=== PATIENT | male | born 1980 ===

== ENCOUNTER 2024-05-26 08:37 | Emergency (ER) | payer MEDICAID, SELFPAY ==
--- NOTE | ~2024-05-26 | XR_ITS ---
EXAMINATION: XR CHEST CLINICAL INFORMATION: Chest pain. Shortness of breath. COMPARISON: None available. TECHNIQUE: Frontal view of the chest was obtained. FINDINGS: Hypoinflation of the lungs. No focal airspace consolidation. No pleural effusion or pneumothorax. Unremarkable cardiomediastinal silhouette. XR/XR chest 1V IMPRESSION: No acute cardiopulmonary findings. Electronically signed by: Edmar Moreno MD 05/26/2024 11:32 AM [facility]
--- NOTE | 2024-05-26 08:41 | ECG_ITS ---
Test Reason : CHEST PAIN Blood Pressure : / mmHG Vent. Rate : 089 BPM Atrial Rate : 089 BPM P-R Int : 144 ms QRS Dur : 072 ms QT Int : 374 ms P-R-T Axes : 047 -24 037 degrees QTc Int : 455 ms Normal sinus rhythm Minimal voltage criteria for LVH, may be normal variant ( R in aVL ) Nonspecific T wave abnormality Abnormal ECG No previous ECGs available Referred By: Generic ED Physician Electronically Signed By:Marcel Muhammad
[2024-05-26 08:50] VITALS: BP 140/90; PULSE 88; RESP 16; TEMP 36.6; O2SAT 97; BMI 35.9
[2024-05-26 09:21] LABS: MANUAL DIFF FLAG NO
[2024-05-26 09:24] LABS: Basophils Percent Auto 0.4 % (0-2); Eosinophils Absolute Auto 0.1 X10*3/uL (0.0-0.4); Eosinophils Percent Auto 2.4 % (0-4); Hematocrit 48.1 % (42.0-52.0); Imm Gran Abs Auto 0.03 X10*3/uL (0.00-0.03); Imm Gran Pct Auto 0.5 % (0.0-0.4); Lymphocytes Absolute Auto 1.7 X10*3/uL (1.2-4.9); Lymphocytes Percent Auto 30.7 % (20-40); Mean Corpuscular HGB Conc 33.3 g/dl (31.0-36.0); Mean Corpuscular Hemoglobin 27.8 pg (27.0-33.0); Mean Corpuscular Volume 83.5 fL (80.0-98.0); Mean Platelet Volume 10.4 fL (9.4-12.4); Monocytes Absolute Auto 0.6 X10*3/uL (0.1-1.2); Neutrophils Absolute Auto 3.1 x10*3/uL (2.0-8.3); Platelet Count 217 X10*3/uL (160-400); Red Blood Count 5.76 X10*6/uL (4.60-5.80); Red Cell Distribution Width 13.2 % (11.0-16.0); White Blood Count 5.5 X10*3/uL (4.8-10.8)
--- NOTE | 2024-05-26 09:38 | PC.NURSE ---
jaylen a&ox3, registered nurse cardiac telemetry applied- nsr on monitor, vss, ekg performed/labs obtained in triage, nasal swab obtained, pt states I have a stabbing feeling in my chest when I breathe lungs are clear throughout, rr equal non labored, pt states he has 7/10 pain, awaiting provider, will continue plan of care
[2024-05-26 09:47] LABS: Alanine Aminotransferase 86 U/L (0-40); Albumin Level 4.1 g/dL (3.5-5.0); Alkaline Phosphatase 94 U/L (39-117); Anion Gap 9 (12-20); Aspartate Amino Transferase 32 U/L (5-37); Bilirubin Total 0.4 mg/dL (0.0-1.0); Blood Urea Nitrogen 13 mg/dL (9-16); Calcium 8.6 mg/dL (8.4-10.2); Carbon Dioxide 26 mmol/L (22-29); Chloride 106 mmol/L (96-108); Creatinine Clr Calc Pharmacy 101.3; Estimated Glomerular Filt Rate > 60; Glucose Random 107 mg/dL (60-115); Magnesium 2.1 mg/dL (1.6-2.6); Potassium 3.9 mmol/L (3.3-5.1); Sodium 137 mmol/L (135-145); Total Protein 7.3 g/dL (6.5-8.0)
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
[2024-05-26 10:16] LABS: INTERNATIONAL NORM RATIO 1.1 (0.9-1.1); Prothrombin Time 12.6 SEC (10.9-12.4)
[2024-05-26 10:18] LABS: D Dimer High Sensitivity < 150 NG/ML
[2024-05-26 10:25] LABS: Influenza A PCR NEGATIVE (Negative); Influenza B PCR NEGATIVE (Negative); Resp Syncy Virus RNA Qual PCR NEGATIVE (Negative); SARS COV2 PCR INHOUSE NEGATIVE (Negative)
[2024-05-26] MEDS: LORazepam 1 MG TABLET PO (10:29)
--- NOTE | 2024-05-26 10:34 | PC.NURSE ---
pt medicated per order
[2024-05-26 11:40] LABS: Troponin-I High Sensitivity 3.1 ng/L (<3.5-35.0)
[2024-05-26 13:40] VITALS: BP 116/84; PULSE 77; RESP 16; TEMP 36.7; O2SAT 94
== END 2024-05-26 13:41 | disposition home or self-care (01) ==
PROVIDERS: Physician Assistant; Emergency Provider Student in an Organized Health Care Education/Training Program
DX: R07.9 Chest pain, unspecified (principal); F41.9 Anxiety disorder, unspecified; R06.02 Shortness of breath; R11.0 Nausea; Z03.818 Encounter for observation for suspected exposure to other biological agents ruled out
CPT/HCPCS: 0241U; 36415; 71045; 80053; 83735; 84484; 85025; 85379; 85610; 93005; 99283; 99284

== ENCOUNTER → 2024-05-26 08:41 | Outpatient (BNV) | payer MEDICAID, SELFPAY | PROVIDERS: Emergency Provider Student in an Organized Health Care Education/Training Program; Visit Provider Internal Medicine Cardiovascular Disease | DX: R07.9 Chest pain, unspecified (principal); R94.31 Abnormal electrocardiogram [ECG] [EKG] | CPT/HCPCS: 93010 ==

== ENCOUNTER → 2024-05-29 14:26 | Outpatient (BNVA) | payer OTHER, SELFPAY | PROVIDERS: Visit Provider Surgery ==

== ENCOUNTER 2024-06-05 08:02 | Outpatient (AMB) | payer MEDICAID, SELFPAY ==
--- NOTE | 2024-06-05 11:39 | MHC.OFFVISWM ---
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*: Details: Start time: 11.30am, End time: 12.15pm ?I spent 40 minutes speaking with the patient on the phone plus an additional 5 minutes reviewing and updating records for a total of 45 minutes HPI Comments Details: Previous weight loss efforts: OTC pills, diet and exercise Wakes up: 9am, sleeps: 10pm Breakfast: skips Lunch: 12pm (rice, bread) Dinner: 3-4pm (rice, bread, chicken, pork) Snacks: several snacks (sweets, sandwich, cakes) Exercise: none Fluids: Coffee: no, tea: rarely, soda: occasionally, juice: ([place] juice or lemonade), ETOH: none PFSH Medical History (Updated 06/05/24 @ 11:54 by Viral Stahl MD) Sleep apnea treated with continuous positive airway pressure (CPAP) Hypertension History of noncompliance with medical treatment Surgical History (Updated 05/29/24 @ 14:50 by Binta Rogers CMA) No history of previous surgery Family History (Updated 05/29/24 @ 14:52 by Binta Rogers CMA) Mother Diabetes Father No problems noted. Daughter No problems noted. Son Autism Social History (Updated 05/29/24 @ 14:50 by Binta Rogers CMA) Alcohol intake: current Alcohol intake frequency: holidays/special occasions only Patient Tobacco Use Status: Current everyday Tobacco user Cigarettes Per Day: 6 Telehealth Telehealth Telehealth Platform: Telephone Location of provider rendering services: practice address Location of patient: address on file Patient Identification confirmed using: Name, : Yes Telehealth method: voice only Patient verbally consented to treatment: Yes Patient verbally consented to billing insurance company: Yes Patient informed of any privacy concerns related to visit: Yes Minutes spent on Phone/Video with Pt.: 45 Assessment & Plan Assessment & Plan (1) Obesity: Code(s): E66.9 - Obesity, unspecified Category: Medical Qualifiers: Body mass index: BMI 35.0-35.9 Obesity classification: adult class 2 (BMI 35 - 39.9) Obesity type: due to excess calories Serious obesity comorbidity presence: with serious comorbidity Qualified Code(s): E66.812 - Obesity, class 2; E66.01 - Morbid (severe) obesity due to excess calories; Z68.35 - Body mass index [BMI] 35.0-35.9, adult Plan: 1.? Plan for lap sleeve gastrectomy. If diaphragmatic or ventral hernias are present at time of surgery, these will be repaired laparoscopically as well. 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 I emphasized the importance of close follow-up, adherence to instructions and good communication. 2.? Please buy the body composition scale we discussed and send me weight measurements as soon as possible and then once a week. 3. The best choice would be to purchase a stationary bike at home that can track calories. Let me know if you do so I can give you an exercise plan. 4. Goal is to lose at least 1.5-2lbs per week 5. Goal to lose 10% of your weight before surgery, which is about 23lbs. Ultimate weight goal: 204lbs before surgery 6. You have high blood pressure. I ordered a blood pressure medication which is called Amlodipine. Please take one per day. Buy a blood pressure monitor and start measuring your blood pressure daily in the morning and let me know the readings 7. I ordered a medication to help you with the weight loss which is called Zepbound. My office will try to authorize it. Please let me know when you receive it so I can give you a meal and exercise plan. 8. To be scheduled for EGD to assess the stomach's anatomy. The possibility of biopsies was discussed. Patient needs to avoid use of NSAIDs and aspirin for 1 week prior to EGD. You must be on liquids only the day before your endoscopy. Risks of perforation and bleeding was discussed with the patient. This will be an outpatient procedure with IV sedation. Orders: Orders Insulin Today E66.01 - Morbid (severe) obesity due to excess calories, E66.812 - Obesity, class 2, G47.30 - Sleep apnea, unspecified, I10 - Essential (primary) hypertension, Z68.35 - Body mass index [BMI] 35.0-35.9, adult Complete Blood Count Auto Diff Today E66.01 - Morbid (severe) obesity due to excess calories, E66.812 - Obesity, class 2, G47.30 - Sleep apnea, unspecified, I10 - Essential (primary) hypertension, Z68.35 - Body mass index [BMI] 35.0-35.9, adult IRON PROFILE Today E66.01 - Morbid (severe) obesity due to excess calories, E66.812 - Obesity, class 2, G47.30 - Sleep apnea, unspecified, I10 - Essential (primary) hypertension, Z68.35 - Body mass index [BMI] 35.0-35.9, adult Comprehensive Met. Panel Today E66.01 - Morbid (severe) obesity due to excess calories, E66.812 - Obesity, class 2, G47.30 - Sleep apnea, unspecified, I10 - Essential (primary) hypertension, Z68.35 - Body mass index [BMI] 35.0-35.9, adult Vitamin B12 and Folate Today E66.01 - Morbid (severe) obesity due to excess calories, E66.812 - Obesity, class 2, G47.30 - Sleep apnea, unspecified, I10 - Essential (primary) hypertension, Z68.35 - Body mass index [BMI] 35.0-35.9, adult Zinc Today E66.01 - Morbid (severe) obesity due to excess calories, E66.812 - Obesity, class 2, G47.30 - Sleep apnea, unspecified, I10 - Essential (primary) hypertension, Z68.35 - Body mass index [BMI] 35.0-35.9, adult C Reactive Protein Today E66.01 - Morbid (severe) obesity due to excess calories, E66.812 - Obesity, class 2, G47.30 - Sleep apnea, unspecified, I10 - Essential (primary) hypertension, Z68.35 - Body mass index [BMI] 35.0-35.9, adult Vitamin D 25-OH Total Today E66.01 - Morbid (severe) obesity due to excess calories, E66.812 - Obesity, class 2, G47.30 - Sleep apnea, unspecified, I10 - Essential (primary) hypertension, Z68.35 - Body mass index [BMI] 35.0-35.9, adult ECG 12 lead EKG Today E66.01 - Morbid (severe) obesity due to excess calories, E66.812 - Obesity, class 2, G47.30 - Sleep apnea, unspecified, I10 - Essential (primary) hypertension, Z68.35 - Body mass index [BMI] 35.0-35.9, adult Hemoglobin A1c Today E66.01 - Morbid (severe) obesity due to excess calories, E66.812 - Obesity, class 2, G47.30 - Sleep apnea, unspecified, I10 - Essential (primary) hypertension, Z68.35 - Body mass index [BMI] 35.0-35.9, adult H Pylori Breath Test Today E66.01 - Morbid (severe) obesity due to excess calories, E66.812 - Obesity, class 2, G47.30 - Sleep apnea, unspecified, I10 - Essential (primary) hypertension, Z68.35 - Body mass index [BMI] 35.0-35.9, adult Lipid Panel Today E66.01 - Morbid (severe) obesity due to excess calories, E66.812 - Obesity, class 2, G47.30 - Sleep apnea, unspecified, I10 - Essential (primary) hypertension, Z68.35 - Body mass index [BMI] 35.0-35.9, adult Vitamin B1 Today E66.01 - Morbid (severe) obesity due to excess calories, E66.812 - Obesity, class 2, G47.30 - Sleep apnea, unspecified, I10 - Essential (primary) hypertension, Z68.35 - Body mass index [BMI] 35.0-35.9, adult Vitamin A Today E66.01 - Morbid (severe) obesity due to excess calories, E66.812 - Obesity, class 2, G47.30 - Sleep apnea, unspecified, I10 - Essential (primary) hypertension, Z68.35 - Body mass index [BMI] 35.0-35.9, adult TSH reflex Free T4 Today E66.01 - Morbid (severe) obesity due to excess calories, E66.812 - Obesity, class 2, G47.30 - Sleep apnea, unspecified, I10 - Essential (primary) hypertension, Z68.35 - Body mass index [BMI] 35.0-35.9, adult Ferritin Today E66.01 - Morbid (severe) obesity due to excess calories, E66.812 - Obesity, class 2, G47.30 - Sleep apnea, unspecified, I10 - Essential (primary) hypertension, Z68.35 - Body mass index [BMI] 35.0-35.9, adult US abdomen comp w elastography Today E66.01 - Morbid (severe) obesity due to excess calories, E66.812 - Obesity, class 2, G47.30 - Sleep apnea, unspecified, I10 - Essential (primary) hypertension, Z68.35 - Body mass index [BMI] 35.0-35.9, adult XR chest 2V Today E66.01 - Morbid (severe) obesity due to excess calories, E66.812 - Obesity, class 2, G47.30 - Sleep apnea, unspecified, I10 - Essential (primary) hypertension, Z68.35 - Body mass index [BMI] 35.0-35.9, adult FL upper GI w air Today E66.01 - Morbid (severe) obesity due to excess calories, E66.812 - Obesity, class 2, G47.30 - Sleep apnea, unspecified, I10 - Essential (primary) hypertension, Z68.35 - Body mass index [BMI] 35.0-35.9, adult Referrals Nutrition/Dietitian Referral E66.01 - Morbid (severe) obesity due to excess calories, E66.812 - Obesity, class 2, G47.30 - Sleep apnea, unspecified, I10 - Essential (primary) hypertension, Z68.35 - Body mass index [BMI] 35.0-35.9, adult Behavioral Health Referral E66.01 - Morbid (severe) obesity due to excess calories, E66.812 - Obesity, class 2, G47.30 - Sleep apnea, unspecified, I10 - Essential (primary) hypertension, Z68.35 - Body mass index [BMI] 35.0-35.9, adult Medications: New amlodipine 2.5 mg PO DAILY 90 tabs 0RF I10 - Essential (primary) hypertension tirzepatide (weight loss) (Zepbound) for 4 weeks 2.5 mg (0.5 mL) subcut QWEEK 2 mL 0RF E66.01 - Morbid (severe) obesity due to excess calories, E66.812 - Obesity, class 2, I10 - Essential (primary) hypertension, Z68.35 - Body mass index [BMI] 35.0-35.9, adult
== END 2024-06-05 14:01 | disposition home or self-care (01) ==
LOC: HO.HBS 08:03
PROVIDERS: Visit Provider Surgery
DX: E66.01 Morbid (severe) obesity due to excess calories (principal); E66.812 Obesity, class 2; Z68.35 Body mass index [BMI] 35.0-35.9, adult
CPT/HCPCS: 99204

== ENCOUNTER 2024-06-13 10:57 | Outpatient (REF) | payer MEDICAID, SELFPAY ==
--- NOTE | 2024-06-13 11:05 | ECG_ITS ---
Test Reason : e66.01 Blood Pressure : / mmHG Vent. Rate : 062 BPM Atrial Rate : 062 BPM P-R Int : 158 ms QRS Dur : 078 ms QT Int : 428 ms P-R-T Axes : 044 -23 001 degrees QTc Int : 434 ms Normal sinus rhythm Nonspecific T wave abnormality Abnormal ECG When compared with ECG of 26-MAY-2024 08:36, Nonspecific T wave abnormality now evident in Inferior leads Referred By: Viral Stahl Electronically Signed By:Marcel Muhammad
[2024-06-13 11:19] LABS: MANUAL DIFF FLAG NO
[2024-06-13 11:49] LABS: Basophils Percent Auto 0.7 % (0-2); Eosinophils Absolute Auto 0.1 X10*3/uL (0.0-0.4); Eosinophils Percent Auto 1.7 % (0-4); Hematocrit 46.5 % (42.0-52.0); Hemoglobin 15.4 g/dl (14.0-18.0); Imm Gran Abs Auto 0.02 X10*3/uL (0.00-0.03); Imm Gran Pct Auto 0.4 % (0.0-0.4); Lymphocytes Absolute Auto 1.4 X10*3/uL (1.2-4.9); Lymphocytes Percent Auto 26.6 % (20-40); Mean Corpuscular HGB Conc 33.1 g/dl (31.0-36.0); Mean Corpuscular Hemoglobin 27.7 pg (27.0-33.0); Mean Corpuscular Volume 83.8 fL (80.0-98.0); Mean Platelet Volume 10.4 fL (9.4-12.4); Monocytes Absolute Auto 0.5 X10*3/uL (0.1-1.2); Monocytes Percent Auto 9.2 % (2-11); Neutrophils Absolute Auto 3.3 x10*3/uL (2.0-8.3); Neutrophils Percent Auto 61.4 % (45-73); Platelet Count 204 X10*3/uL (160-400); Red Blood Count 5.55 X10*6/uL (4.60-5.80); Red Cell Distribution Width 13.5 % (11.0-16.0); White Blood Count 5.3 X10*3/uL (4.8-10.8)
[2024-06-13 13:24] LABS: Alanine Aminotransferase 80 U/L (0-40); Albumin Level 4.1 g/dL (3.5-5.0); Alkaline Phosphatase 77 U/L (39-117); Anion Gap 9 (12-20); Aspartate Amino Transferase 44 U/L (5-37); Bilirubin Total 0.7 mg/dL (0.0-1.0); Blood Urea Nitrogen 14 mg/dL (9-16); C Reactive Protein 0.25 mg/dL (< or = 0.50); Calcium 8.3 mg/dL (8.4-10.2); Carbon Dioxide 26 mmol/L (22-29); Chloride 108 mmol/L (96-108); Cholesterol 192 mg/dL (<200); Estimated Glomerular Filt Rate > 60; Glucose Random 90 mg/dL (60-115); HDL Cholesterol 33 mg/dL (>40); Iron 161 mcg/dL (45-160); LDL Cholesterol Calculated 137 mg/dL (<100); Percent Iron Saturation 55 % (15-50); Potassium 3.6 mmol/L (3.3-5.1); Sodium 139 mmol/L (135-145); Total Iron Binding Capacity 291 mcg/dL (228-428); Total Protein 7.1 g/dL (6.5-8.0); Triglycerides 110 mg/dL (<150); Unsaturated Iron Binding 130 ug/dL
[2024-06-13 13:37] LABS: Ferritin 202 ng/mL (20-250); TSH reflex Free T4 1.37 uIU/mL (0.32-4.0)
[2024-06-13 14:24] LABS: Folate 12.5 ng/mL (> or = 4.0); Insulin 28 uU/mL (2-29); Vitamin B12 338 pg/mL (200-900)
[2024-06-13 14:46] LABS: Estimated Average Glucose 114 mg/dL; Hemoglobin A1C 130.9049 umol/L; Hemoglobin A1c % 5.6 % (<6.0)
[2024-06-16 18:23] LABS: Vitamin A 44 mcg/dL (38-98)
[2024-06-16 23:19] LABS: Zinc 91 mcg/dL (60-130)
[2024-06-17 08:22] LABS: Vitamin B1 12 nmol/L (8-30)
== END 2024-06-13 10:58 | disposition home or self-care (01) ==
LOC: HO.XRAY 10:57
PROVIDERS: Visit Provider Surgery
DX: E66.812 Obesity, class 2 (principal); E66.01 Morbid (severe) obesity due to excess calories; Z68.35 Body mass index [BMI] 35.0-35.9, adult; I10 Essential (primary) hypertension; G47.30 Sleep apnea, unspecified
CPT/HCPCS: 36415; 71046; 80053; 80061; 82306; 82607; 82728; 82746; 83036; 83525; 83540; 84425; 84443; 84590; 84630; 85025; 86140; 93005

== ENCOUNTER → 2024-06-13 11:05 | Outpatient (BNV) | payer MEDICAID, SELFPAY | PROVIDERS: Visit Provider Internal Medicine Cardiovascular Disease | DX: R94.31 Abnormal electrocardiogram [ECG] [EKG] (principal) | CPT/HCPCS: 93010 ==

== ENCOUNTER 2024-06-22 11:15 | Outpatient (REF) | payer MEDICAID, SELFPAY | END 2024-06-22 11:16 | disposition home or self-care (01) | LOC: HO.US 11:15 | PROVIDERS: Visit Provider Surgery | DX: E66.812 Obesity, class 2 (principal); E66.01 Morbid (severe) obesity due to excess calories; Z68.35 Body mass index [BMI] 35.0-35.9, adult; I10 Essential (primary) hypertension; G47.30 Sleep apnea, unspecified | CPT/HCPCS: 76700; 76981 ==

== ENCOUNTER → 2024-06-22 11:17 | Outpatient (BNV) | payer MEDICAID, SELFPAY | PROVIDERS: Visit Provider Radiology Diagnostic Radiology | DX: K76.0 Fatty (change of) liver, not elsewhere classified (principal) | CPT/HCPCS: 76700 ==

== ENCOUNTER → 2024-06-28 09:22 | Outpatient (BNVA) | payer OTHER, MEDICAID, SELFPAY | PROVIDERS: Visit Provider Counselor Mental Health ==

== ENCOUNTER → 2024-06-28 09:22 | Outpatient (AMB) | payer OTHER, SELFPAY ==
--- NOTE | 2024-06-28 09:05 | MHC.WMTHER ---
Intake Intake Visit Reasons: VIDEO BH Intake Allergies No Known Allergies Allergy (Verified 06/05/24 11:39) [facility] Medical History (Updated 06/13/24 @ 16:18 by Viral Stahl MD) Sleep apnea treated with continuous positive airway pressure (CPAP) Hypertension History of noncompliance with medical treatment Surgical History (Updated 05/29/24 @ 14:50 by Binta Rogers CMA) No history of previous surgery Family History (Updated 05/29/24 @ 14:52 by Binta Rogers CMA) Mother Diabetes Father No problems noted. Daughter No problems noted. Son Autism Social History (Updated 05/29/24 @ 14:50 by Binta Rogers CMA) Alcohol intake: current Alcohol intake frequency: holidays/special occasions only Patient Tobacco Use Status: Current everyday Tobacco user Cigarettes Per Day: 6 Behavioral Health Assessment Weight Management Therapy Therapy Notes Details PT is a 44 years old male, who presents for intial visit to complete BH assessment as part of surgical weight loss program. Presenting Concerns Referral Source WMP-Provider. Reason for referral Completion of behavioral health assessment as part of process for weight-loss surgery. Precipitating Event Obesity. Living Situation Current Living Situation Own At risk of losing current housing? Yes (PT lost his job 2 months ago. ) Satisfied with current living situation? Yes Comments PT lives alone. Food/Weight/Diet Expectations of change Initial Goal to lose 10% of your weight before surgery, which is about 23 lbs. Ultimate weight goal: 204lbs before surgery Most recent weight: 221 Lbs. PT is implementing the following: Current meal plan: Exercise plan: stationary bike. daily. History/Relationship with food Example of meals before starting the program: Breakfast: Lunch: Dinner: Snacks: Drinks/Liquids: History/Relationship with weight In the last 10 years, the patient's Lowest weight was and highest Social History Family history and relationship PT is . PT has 2 young children. Parental/Familial de icer finisher obligations 6 year old daughter, and 4 year old son. Cultural/Ethnic information . PT was born and raised in [place] in [place] 2021. 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 ) Mental Health and Addiction Treatment Current/Past substance abuse? No Comments Alcohol: Socially. 2-3 beers 1-3 times at month. At times can be months in between. Cigarettes/Tobacco: Yes. Smokes cigarettes daily. Smokes 6-8 at day. Cannabis/Edibles: None. Current/Past addictive behavior concerns? No Psychiatric history PT reports in the last 2 years he has been struggling with high stress due to major housing issues. He gets prescribed with: - Clonazepam 0.5mg, Started on May after an ER visit due to chest pain after an argument with ex-. - Hydroxyzine 10mg, [facility] prescriber. not using as he's afraid of side effects he read, such as SI Currently attends counseling every 2-4 weeks and sees a prescriber at [facility]. However, he hasn't seen a therapist 2 months ago due to insurance coverage issues. PT denies ever being in crisis or inpatient for mental health. There is no history and/or current concern about SI/Sa and self-harm or other harm. Questionnaires PHQ-9 Over the last 2 weeks, how often have you been bothered by any of the following problems? 1. Little interest or pleasure in doing things: nearly every day 2. Feeling down, depressed, or hopeless: more than half the days 3. Trouble falling or staying asleep, or sleeping too much: more than half the days 4. Feeling tired or having little energy: more than half the days 5. Poor appetite or overeating: nearly every day 6. Feeling bad about yourself - or that you are a failure or have let yourself or your family down: more than half the days 7. Trouble concentrating on things, such as reading the newspaper or watching television: several days 8. Moving or speaking so slowly that other people could have noticed. Or the opposite - being so fidgety or restless that you have been moving around a lot more than usual: several days 9. Thoughts that you would be better off or of hurting yourself in some way: not at all Total score: 16 Depression Screening Interpretation: Positive Depression Screening Done: Yes Source: Developed by Drs. Clovis Malagon, Anita Luis, Jose Good and colleagues, with an educational svetlana from [employer]. Binge Eating Scale Group 1 A. I don't feel self-conscious about my wt. or body size when I'm with others. B. I feel concerned about how I look to others, but it normally does not make me fell disappointed with myself C. I do get self-conscious about my appearance and wt. which makes me feel disappointed in myself. D. I feel very self-conscious about my wt. and frequently I feel intense shame and disgust for myself. I try to avoid social contacts because of my self-consciousness. Response Group 1: C Group 2 A. I don't have any difficulty eating slowly in the proper manner. B. Although I seem to gobble down foods, I don't end up feeling stuffed because of eating to much. C. At times, I tend to eat quickly and then, I feel uncomfortably full afterwards. D. I have the habit of bolting down my food, without really chewing it. When this happens I usually feel uncomfortably stuffed because I've eaten to much. Response Group 2: D Group 3 A. I feel capable to control my eating urges when I want to. B. I feel like I have failed to control my eating more than the average person. C. I feel utterly helpless when it comes to feeling in control of my eating urges. D. Because I feel so helpless about controlling my eating I have become very desperate about trying to get control. Response Group 3: A Group 4 A. I don't have the habit of eating when I'm bored. B. I sometimes eat when I'm bored, but often I'm able to get busy and get my mind off food. C. I have a regular habit of eating when I'm bored, but occasionally, I can use some other activity to get my mind off eating. D. I have a strong habit of eating when I'm bored. Nothing seems to help me breath the habit. Response Group 4: C Group 5 A. I'm usually physically hungry when I eat something. B. Occasionally, I eat something on impulse even though I really am not hungry. C. I have the regular habit of eating foods, that I might not really enjoy, to satisfy a hungry feeling even though physically, I don't need the food. D. Although I'm not physically hungry, I get a hungry feeling in my mouth that only seems to be satisfied when I eat a food, like sandwich, that fills my mouth. Sometimes, when I eat the food to satisfy my mouth hunger, I then spit the food out so I won't gain weight. Response Group 5: B Group 6 A. I don't feel any guilt or self-hate after I overeat. B. After I overeat, occasionally I feel guilt or self-hate. C. Almost all the time I experience strong guilt or self-hate after I overeat. Response Group 6: A Group 7 A. I don't lose total control of my eating when dieting even after periods when I overeat. B. Sometimes when I eat a forbidden food on a diet, I feel like I blew it and eat even more. C. Frequently, I have the habit of saying to myself, I've blown it now, why not go all the way, when I overeat on a diet. When that happens I eat more. D. I have a regular habit of starting a strict diets for myself but I break the diets by going on an eating binge. My life seems to be either a feast or famine. Response Group 7: A Group 8 A. I rarely eat so much food that I feel uncomfortably stuffed afterwards. B. Usually about once a month, I each such a quantity of food, I end up feeling very stuffed. C. I have regular periods during the month when I eat large amounts of food, either at mealtime or at snacks. D. I eat so much food that I regularly feel quite uncomfortable after eating and sometimes a bit nauseous. Response Group 8: A Group 9 A. My level of calorie intake does not go up very high or go down very low on a regular basis. B. Sometimes after I overeat, I will try to reduce my caloric intake to almost nothing to compensate for the excess calories I've eaten. C. I have a regular habit of overeating during the night. It seems that my routine is not to be hungry in the morning but overeat in the evening. D. In my adult years, I have had week-long periods where I practically starve myself. This follows periods when I overeat. It seems I live a life of either feast or famine. Response Group 9: C Group 10 A. I usually am able to stop eating when I want to. I know when enough is enough. B. Every so often, I experience a compulsion to eat which I can't seem to control. C. Frequently, I experience strong urges to eat which I seem unable to control, but at other times I can control my eating urges. D. I feel incapable of controlling urges to eat. I have a fear of not being able to stop eating voluntarily. Response Group 10: A Group 11 A. I don't have any problem stopping eating when I feel full. B. I usually can stop eating when I feel full but occasionally overeat leaving me feeling uncomfortably stuffed. C. I have a problem stopping eating once I start and usually I feel uncomfortably stuffed after I eat a meal. D. Because I have a problem not being able to stop eating when I want, I sometimes have to induce vomiting to relieve my stuffed feeling. Response Group 11: A Group 12 A. I seem to eat just as much when I'm with others, Family social gatherings as when I'm by myself. B. Sometimes, when I'm with other persons, I don't eat as much as I want to eat because I'm self-conscious about my eating. C. Frequently, I eat only a small amount of food when others are present, because I'm very embarrassed about my eating. D. I feel so ashamed about overeating that I pick times to overeat when I know no one will see me. I feel like a closet eater. Response Group 12: A Group 13 A. I eat three meals a day with only an occasional between meal snack. B. I eat 3 meals a day, but I also normally snack between meals. C. When I am snacking heavily, I get in the habit of skipping regular meals. D. There are regular periods when I seem to be continually eating, with no planned meals. Response Group 13: C Group 14 A. I don't think much about trying to control unwanted eating urges. B. At least some of the time, I feel my thoughts are pre-occupied with trying to control my eating urges. C. I feel that frequently I spend much time thinking about how much I ate or about trying not to eat anymore. D. It seems to me that most of my waking hours are pre-occupied by thoughts about eating or not eating. I feel like I'm constantly struggling not to eat. Response Group 14: C Group 15 A. I don't think about food a great deal. B. I have strong craving for food but they last only for brief periods of time. C. I have days when I can't seem to think about anything else but food. D. Most of my days seem to be pre-occupied with thoughts about food. I feel like I live to eat. Response Group 15: A Group 16 A. I usually know whether or not I'm physically hungry. I take the right portion of food to satisfy me. B. Occasionally, I feel uncertain about knowing whether or not I'm physically hungry. A these times it's hard to know how much food I should take to satisfy me. C. Even though I might know how many calories I should eat, I don't have any idea what is a normal amount of food for me. Response Group 16: A Binge Eating Score: 14 Score less than 17 Minimal Risk Score between 18-26 Moderate Risk Score between 27-46 High Risk Assessment & Plan Assessment & Plan (1) Adjustment disorder with anxiety: Code(s): F43.22 - Adjustment disorder with anxiety Plan PT will return in 2-4 weeks to continue assessment. He's not yet cleared. Next john: 07/10/2024 at 9am, Telehealth. Telehealth Telehealth Telehealth Platform: [facility] Location of provider rendering services: other Location of patient: address on file Patient Identification confirmed using: Name, : Yes Telehealth method: voice only Patient verbally consented to treatment: Yes Patient verbally consented to billing insurance company: Yes Patient informed of any privacy concerns related to visit: Yes Minutes spent on Phone/Video with Pt.: 55 Coding Level of Care Code New Pt Tele Psy Diag Eval (32000) Patient Type New Diagnoses Adjustment disorder with anxiety F43.22 Time Spent (min) 55
== END ==
PROVIDERS: Visit Provider Counselor Mental Health
DX: F43.22 Adjustment disorder with anxiety (principal)
CPT/HCPCS: 90834

== ENCOUNTER → 2024-07-03 08:00 | Outpatient (REF) | payer MEDICAID, SELFPAY ==
--- NOTE | 2024-07-03 08:03 | CA_ITS ---
Transthoracic Echocardiogram Patient (Last, First, Middle): Dallin Scott, Gender: Male Date of : 1980 Age: 44 Procedure Date: 07/03/2024 Procedure Type: Transthoracic Echocardiogram Location: OP Height: 170. cm Weight: 101.15 kg BSA: 2.12 m2 Heart Rate: 62 bpm BP: 128 / 80 mmHg Transition Manager: LEONIDAS Referring MD: Viral Stahl MD Symptoms: R94.31 - Abnormal electrocardiogram [ECG] [EKG] Study Quality: Adequate ECG Rhythm: Sinus Conclusions: - The left ventricular systolic function is normal. The calculated ejection fraction is 67% by biplane method. - No obvious valvular pathology seen on this study. Findings Left Ventricle Normal left ventricular cavity size. There is mildly increased left ventricular wall thickness. The left ventricular systolic function is normal. The calculated ejection fraction is 67% by biplane method. There is no evidence of regional wall motion abnormalities. Diastolic function is normal for age. Right Ventricle Mildly increased right ventricular cavity size. There is normal right ventricular systolic function. Atria Both atria are normal in size. Aortic Valve There is a normal trileaflet aortic valve. There is no aortic valve stenosis. There is trace (trivial) aortic valve regurgitation. Mitral Valve The mitral valve appears normal. There is no mitral valve regurgitation. There is no mitral valve stenosis. Pulmonic Valve The pulmonic valve is likely normal. Tricuspid Valve There is trace tricuspid valve regurgitation. There is no evidence of pulmonary hypertension. Great Vessels The asc aorta and aortic arch are normal in size. Venous The inferior vena cava is normal in size and collapses greater than 50% with inspiration. Pericardium/Pleural There is no evidence of pericardial effusion. Prior Study Comparison No prior study available for comparison. Recommendations, Care & Conclusions No obvious valvular pathology seen on this study. Measurements 2D Linear Measurements IVSd: 1.07 0.6-0.9/0.6-1.0 cm LVIDd: 4.60 3.9-5.3/4.2-5.9 cm LVIDd Index: 2.17 2.4-3.2/2.2-3.1 cm/m2 LVIDs: 2.36 2.0-3.6 cm LVPWd: 1.05 0.7-1.1 cm LA Diam: 3.60 2.7-3.8/3.0-4.0 cm LAIDs Index: 1.70 1.5-2.3 cm/m2 LV Mass: 214.37 67-162/88-224 g LV Mass Index: 101.12 43-95/49-115 g/m2 LVOT Diam: 2.10 3.0+(-)1.3 cm 2D Systolic Function EF 4C: 67.50 >55% EF 2C: 69.20 >55% EF BiP: 67.20 >55% Mitral Valve MV Pk E: 0.62 MV PK A: 0.50 MV Decel Time: 355.00 E/A: 1.20 E'Lateral: 9.03 E'Medial: 8.38 E/E' Med: 7.40 E/E' Lat: 6.90 PHT: 104.00 MVA PHT: 2.12 Decel Gladwin: 1.75 Aortic Valve AoV Pk Jose: 1.61 AoV Mn Jose: 1.19 AoV VTI: 0.36 AoV Pk Grad: 10.00 Aov Mn Grad: 6.00 LAUREN Cont.VTI: 2.39 LVOT LVOT Pk Jose: 1.32 LVOT Mn Jose: 0.82 LVOT VTI: 0.25 LVOT Pk Grad: 7.00 LVOT Mn Grad: 3.00 LVOT Diam: 2.10 LVOT Area: 3.46 Diastolic Function MV Pk E: 0.62 MV Pk A: 0.50 E/A: 1.20 E'Medial: 8.38 E/E' Med: 7.40 E' Laterial: 9.03 E/E' Lat: 6.90 Right Ventricle TAPSE (mm): 18.70 TVS' Jose: 14.40 Tricuspid Valve TR Pk Jose: 1.85 TR Pk Grad: 14.00 Great Vessels Aorta Sinus of Valsalva: 4.00 2.0-3.5 cm Ao Asc: 3.70 2.1-3.4 cm Ao Arch: 3.00 Pulmonary Valve PV Pk Jose: 1.00 Peak PV Grad: 4.00 Updated in Other Vendor System with Status of Final Kendall Nagel MD electronically signed on 07/03/2024 10:39:05 AM with status of Final
--- NOTE | 2024-07-03 08:03 | CA_ITS ---
Acquisition Time: 2024-07-03 08:44:17 Total Exercise Time: 00:08:16 Test Indications: PREOP Medications: SEE H Protocol: JUVE Max HR: 151 BPM 86% of Pred: 175 BPM Max BP: 148/068 mmHG Max Work Load: 10.1 METS Exercise Stress Test with exercise 8 min 16 secs of Juve Protocol, achieving 85% MPHR, with mild SOB, no chest discomfort, without any arrythmias, with normotensive response to exercise. Without any EKG changes meeting criteria for ischemia. In recovery, breathing quickly returned to baseline. Test reviewed with Dr. Muhammad. Test performed by Gaviota Lo NP and Luis Eduardo Kemp NP Referred By: Viral Stahl Overread By: GAVIOTA LO
== END ==
LOC: HO.CARD 08:00
PROVIDERS: PCP Internal Medicine; Visit Provider Surgery
DX: R94.31 Abnormal electrocardiogram [ECG] [EKG] (principal)
CPT/HCPCS: 93017; 93306

== ENCOUNTER → 2024-07-03 08:03 | Outpatient (BNV) | payer MEDICAID, SELFPAY | PROVIDERS: PCP Internal Medicine; Visit Provider Internal Medicine | DX: R94.31 Abnormal electrocardiogram [ECG] [EKG] (principal) | CPT/HCPCS: 93016; 93018; 93350 ==

== ENCOUNTER 2024-07-18 10:10 | Day surgery (SDC) | payer MEDICAID, SELFPAY ==
--- NOTE | 2024-07-17 09:21 | HO.ANESPROP2 ---
Documented by User: Anais Lee NP 07/17/24 09:22 HPI - Anesthesia Eval Consult details Narrative: 44yo M for Upper Endoscopy Anesthesia Pre-Procedure Meds Is the patient on any of the following meds?: GLP1/DPP4 PMFSH Active Problems Active Problems: All Active Problems Abnormal EKG (Acute) Vitamin B12 deficiency (Acute) Vitamin D deficiency (Acute) Sleep apnea treated with continuous positive airway pressure (CPAP) (Acute) Hypertension (Acute) BMI 35.0-35.9,adult (Acute) Obesity (Acute) Past Medical History Medical History Sleep apnea treated with continuous positive airway pressure (CPAP) Hypertension History of noncompliance with medical treatment Family History Family History (Reviewed 07/18/24 @ 12: by Smita Blackman MD) Mother Diabetes Father No problems noted. Daughter No problems noted. Son Autism Surgical History Surgical History No history of previous surgery Social History Social History Alcohol intake: current Alcohol intake frequency: holidays/special occasions only Patient Tobacco Use Status: Current everyday Tobacco user Tobacco use type: Cigarette Cigarettes Per Day: 8 Use of substances other than those prescribed or required for medical reasons: No Are you DNR?: No Advance Directives: No Advance Directives Information Provided: Yes Nutrition Risks: No Nutritional Risk Poor oral hygiene: No Meds Allergies Allergy/AdvReac Type Severity Reaction Status Date / Time No Known Allergies Allergy Verified 06/05/24 11:39 Home Medications ?Medication ?Instructions ?Recorded ?Confirmed ?Last Taken ?Type CPAP (CPAP Machine/Device) 05/29/24 06/05/24 Unknown History clonazepam 0.5 mg tablet 0.25 mg PO BEDTIME 06/05/24 06/05/24 Unknown History Assessment and Plan Assessment Anesthesia Assessment: Chart Reviewed Documented by User: Smita Blackman MD 07/18/24 12:27 [facility] Past Medical History Medical History Sleep apnea treated with continuous positive airway pressure (CPAP) Hypertension History of noncompliance with medical treatment Family History Family History Mother Diabetes Father No problems noted. Daughter No problems noted. Son Autism Surgical History Surgical History No history of previous surgery History of Problems with Anesthesia: No Social History Social History Alcohol intake: current Alcohol intake frequency: holidays/special occasions only Patient Tobacco Use Status: Current everyday Tobacco user Tobacco use type: Cigarette Cigarettes Per Day: 8 Use of substances other than those prescribed or required for medical reasons: No Are you DNR?: No Advance Directives: No Advance Directives Information Provided: Yes Nutrition Risks: No Nutritional Risk Poor oral hygiene: No Meds Allergies Allergy/AdvReac Type Severity Reaction Status Date / Time No Known Allergies Allergy Verified 06/05/24 11:39 Home Medications ?Medication ?Instructions ?Recorded ?Confirmed ?Last Taken ?Type CPAP (CPAP Machine/Device) 05/29/24 06/05/24 Unknown History clonazepam 0.5 mg tablet 0.25 mg PO BEDTIME 06/05/24 06/05/24 Unknown History Exam Airway Mallampati Class: III TM Dist: >3cm Neck ROM: Full Loose/Missing/Broken Teeth: Yes Heart: RRR Lungs: CTA Assessment and Plan Assessment Anesthesia Assessment: Anesthesia Plan Discussed Final Anesthetic Review History of Problems with Anesthesia: No NPO: Yes ASA Class: II Final Preanesthetic Review: Meds/Allgs Chart Reviewed, Consent Obtained/Reviewed and Anes Risks/Benef Reviewed Patient Risk: Low Procedure Risk: Intermediate Anesthetic Plan Anesthetic Plan: MAC: Disposition: Standard PACU
[2024-07-18 10:53] VITALS: BMI 33.7
[2024-07-18 10:59] VITALS: BP 131/84; PULSE 70; RESP 16; TEMP 36.4; O2SAT 97
[2024-07-18] MEDS: Lactated Ringers 1,000 ML 80 ML IVCONT (11:11)
--- NOTE | 2024-07-18 12:18 | MHC.SHP ---
Pre-Procedural Eval Section A - 24 Hr Update-Section A only Date of Service: 07/18/24 The patient is an INPATIENT: No The patient has been examined within 24 hours of the surgical procedure. The History & Physical has been completed within 30 days and I have reviewed it.: Yes Section B - Complete if H&P > 30 days Chief Complaint: Morbid (severe) obesity due to excess calories Details of Present Illness: Obesity Relevant Family History (Specify if Yes): No Relevant Social History: None Present Medications: None Medical History: No relevant PMH History of Previous Operations: No relevant previous surgery Allergies: Allergies Allergy/AdvReac Type Severity Reaction Status Date / Time No Known Allergies Allergy Verified 06/05/24 11:39 Review of Systems Sugical H&P ROS: Negative: Constitution, Cardiovascular, Respiratory, Neurological, Psychiatric, Hem-Onc, Allergic/Immunologic, Gastrointestinal, Genitourinary, Musculoskeletal, Integumentary, Endocrine and Eyes/Ears/Nose/Throat Exam Surgical H&P Exam: Normal: HEENT, Normal: Heart, Normal: Lungs, Normal: Extremities, Normal: Abdomen, Normal: Skin and Normal: Neurological Plan Diagnosis/Plan: Unchanged (EGD to assess the stomach's anatomy. Risks of bleeding and perforation were discussed with the patient and he is in agreement with the plan.) I have reviewed the history and physical and performed a pertinent physical examination on my patient. No changes have occurred unless specified. Time Spent With Patient Time: Total time managing care of this patient today ____ minutes.
--- NOTE | 2024-07-18 12:23 | PM.OP ---
Brief Operative Note Date of Service: 07/18/24 Pre-op diagnosis: Obesity Post-op diagnosis: same (& small diaphragmatic hernia) Procedure: PROCEDURE DATE: 07/18/2024 PREOPERATIVE DIAGNOSIS: Obesity POSTOPERATIVE DIAGNOSIS: ?Same as above. 1) small diaphragmatic hernia PROCEDURE: Luhlluye-vedznp-iuxffjwtwzya with biopsies Surgeon: Markus Stahl M.D.. Ph.D. Home Health Scheduler: None ? Anesthesia: IV sedation Estimated blood loss: ?Minimal FINDINGS AND PROCEDURE: ? OPERATIVE INDICATIONS: ?The patient is a 44 year old male known to me who is interested in bariatric surgery. Based on this information I recommended an upper endoscopy to evaluate the stomach's anatomy. Risks and complications of the surgery were discussed with the patient in advance particularly the possibility of perforation or bleeding that may require surgical intervention. The patient understood the risks and was in agreement with the plan. ? PROCEDURE: After informed consent was obtained by the patient, the patient was ?transferred to the Operating Room and was placed in the supine position.? After successful induction of IV sedation, a mouth block was inserted and the patient was placed in the left lateral decubitus position. An upper endoscopy was performed next, the oropharynx and esophagus appeared within the normal limits. There was a small 2-3cm diaphragmatic hernia. The z-line was smooth. Two biopsies were obtained from the distal esophagus 2-3 cm proximal to the GE junction and two additional biopsies from the GE junction. The stomach was entered and it appeared to be of normal size. There was no gastritis. There was no stricture or ulcer. A biopsy was obtained from the gastric fundus and antrum. No significant bleeding was noted from any of the biopsy sites. Retroflexion of the scope confirmed the presence of a small diaphragmatic hernia. The scope was then advanced into the duodenum which appeared to be normal as well. At that point the duodenum ?and the stomach were decompressed and the scope was withdrawn from the patient's mouth. The patient extubated and was transferred in stable condition to the Recovery Room for further care. I was present and performed all steps of the procedure. There were no residents to assist with this case. Aleksandar Stahl M.D., Ph.D. Surgeon: Viral Stahl MD Anesthesia: MAC Was an Home Health Scheduler used for this Procedure?: No Estimated blood loss (mL): 0 IV fluids (mL): 400 Urine output (mL): 0 (No Seals to record output) Pathology: other (1) antrum x1, 2) fundus x1, 3) GE junction x2, 4) distal esophagus x2) Condition: stable Disposition: PACU
[2024-07-18 12:55] VITALS: BP 122/76; PULSE 93; RESP 18; TEMP 36.6; O2SAT 98
[2024-07-18 13:10] VITALS: BP 120/78; PULSE 85; RESP 16; O2SAT 98
[2024-07-18 13:25] VITALS: BP 118/84; PULSE 73; RESP 16; TEMP 36.4; O2SAT 94
== END 2024-07-18 14:13 | disposition home or self-care (01) ==
PROVIDERS: Visit Provider Surgery
PROC: 0DJ08ZZ Inspection of Upper Intestinal Tract, Via Natural or Artificial Opening Endoscopic (ICD-10-PCS; CPT 43235; principal; 2024-07-18 13:10)
DX: E66.01 Morbid (severe) obesity due to excess calories (principal); E66.812 Obesity, class 2; Z68.35 Body mass index [BMI] 35.0-35.9, adult; K44.9 Diaphragmatic hernia without obstruction or gangrene; I10 Essential (primary) hypertension; G47.30 Sleep apnea, unspecified; Z79.899 Other long term (current) drug therapy; Z99.89 Dependence on other enabling machines and devices; Z91.199 Patient's noncompliance with other medical treatment and regimen due to unspecified reason; F17.210 Nicotine dependence, cigarettes, uncomplicated
CPT/HCPCS: 43239; 88305; 88313; 88342; J2003; J2250; J2704

== ENCOUNTER → 2024-07-18 10:10 | Outpatient (BNV) | payer MEDICAID, SELFPAY | PROVIDERS: Visit Provider Surgery | DX: K44.9 Diaphragmatic hernia without obstruction or gangrene (principal) | CPT/HCPCS: 43239 ==

== ENCOUNTER → 2024-07-31 08:22 | Outpatient (BNVA) | payer OTHER, MEDICAID, SELFPAY | PROVIDERS: Visit Provider Counselor Mental Health ==

== ENCOUNTER → 2024-07-31 08:22 | Outpatient (AMB) | payer OTHER, SELFPAY ==
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
== END ==
PROVIDERS: Visit Provider Counselor Mental Health
DX: F43.22 Adjustment disorder with anxiety (principal)
CPT/HCPCS: 90837

== ENCOUNTER → 2024-08-11 09:42 | Outpatient (BNVA) | payer MEDICAID, SELFPAY | PROVIDERS: Visit Provider Physician Assistant Surgical ==

== ENCOUNTER 2024-10-08 13:07 | Emergency (ER) | payer MEDICAID, SELFPAY ==
--- NOTE | ~2024-10-08 | XR_ITS ---
CLINICAL HISTORY: pain, injury Three views of the right ankle. COMPARISON: None FINDINGS: No ankle joint effusion. Tiny calcaneal enthesophyte present. Ankle mortise appears symmetric on non-stressed views. Talar dome appears intact. Distal tibia and fibula appear intact. Visualized tarsal bones appear intact. IMPRESSION: 1. No radiographic evidence of acute injury to the right ankle. This document has been electronically signed by: Jhoan Segura MD on 10/08/2024 13:49:25
--- NOTE | ~2024-10-08 | US_ITS ---
CLINICAL HISTORY: Right posterior ankle pain, deformity, r.o ashley Ultrasound of the soft tissues of the right ankle COMPARISON: None FINDINGS: Dedicated ultrasound imaging was performed along the distal right Achilles tendon. Right Achilles tendon is enlarged and edematous when compared with the left Achilles tendon. Complex irregularity measuring approximately 1.8 x 1.1 cm present within the distal Achilles tendon with disruption of the architecture and normal Achilles tendon striations not visualized. No organizing fluid collection identified. No foreign body identified. IMPRESSION: 1. Probable distal right Achilles tendon tear/rupture. This document has been electronically signed by: Jhoan Segura MD on 10/08/2024 16:09:50
--- NOTE | ~2024-10-08 | XR_ITS ---
CLINICAL HISTORY: fall, pain Three views of the right foot. COMPARISON: None FINDINGS: No ankle joint effusion. Tiny calcaneal enthesophyte present. Normal tarsometatarsal alignment. Tarsals, metatarsals and phalanges appear intact. IMPRESSION: 1. No radiographic evidence of acute injury to the right foot. This document has been electronically signed by: Jhoan Segura MD on 10/08/2024 13:50:31
[2024-10-08 13:08] VITALS: BP 105/71; PULSE 88; RESP 24; TEMP 36.2; O2SAT 98; BMI 32.9
--- NOTE | 2024-10-08 13:08 | ED.LOWEXIN ---
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 Patient reports he was playing basketball and a friend stepped on the back of his right ankle. He immediately heard a snapping sensation and felt pain. Since then he can not ambulate on the extremity. He has no associated numbness, weakness or tingling of the extremity. Related Data Home Medications ?Medication ?Instructions ?Recorded ?Confirmed CPAP (CPAP Machine/Device) 05/29/24 06/05/24 clonazepam 0.5 mg tablet 0.25 mg PO BEDTIME 06/05/24 06/05/24 Previous Rx's ?Medication ?Instructions ?Recorded amlodipine 2.5 mg tablet 2.5 mg PO DAILY #90 tabs 06/05/24 tirzepatide (weight loss) 2.5 2.5 mg (0.5 mL) subcut QWEEK #2 mL 06/05/24 mg/0.5 mL subcutaneous pen injector (Zepbound) cholecalciferol (vitamin D3) 125 125 mcg PO DAILY #90 caps 06/13/24 mcg (5,000 unit) capsule mecobalamin (vitamin B12) 1,000 1,000 mcg sublingual DAILY #90 tabs 09/04/24 mcg disintegrating tablet,sublingual oxycodone 10 mg tablet 10 mg PO Q6H PRN pain #12 tabs 10/08/24 Allergies Allergy/AdvReac Type Severity Reaction Status Date / Time No Known Allergies Allergy Verified 10/08/24 13:12 Review of Systems Review of Systems: Yes all other systems are reviewed and are negative Constitutional: Constitutional: Reports no additional constitutional complaints, Denies body ache(s), Denies chills, Denies fever(s), Denies headache(s) and Denies weakness Eyes: Eyes: Reports no additional eye complaints and Denies change in vision ENT: Reports system reviewed and no additional complaints, except as documented, Denies dizziness, Denies headache(s), Denies nasal congestion, Denies nasal discharge and Denies neck pain Cardiovascular: Cardiovascular: Reports no additional cardiovascular complaints, Denies chest pain, Denies leg edema and Denies dyspnea Respiratory: Respiratory: Reports no additional respiratory complaints, Denies cough and Denies dyspnea Gastrointestinal: Gastrointestinal: Reports no additional gastrointestinal complaints, Denies abdominal pain, Denies diarrhea, Denies nausea and Denies vomiting Genitourinary: Genitourinary: Denies urinary incontinence Musculoskeletal: Musculoskeletal: Reports no additional musculoskeletal complaints, Denies back pain, Reports arthralgias, Denies joint swelling, Denies limited range of motion, Denies neck pain, Denies numbness and Denies tingling Integumentary/Breasts: Skin/Breast: Reports system reviewed and no additional complaints, except as docu and Denies rash Neurologic: Reports system reviewed and no additional complaints, except as documented, Denies Abnormal speech present, Denies dizziness, Denies headache(s), Denies numbness, Denies tingling and Denies weakness PMFSH Past Medical History Attestation statement: The following information was validated with the patient. Source: old records reviewed and nursing notes reviewed Medical History History of smoking Sleep apnea treated with continuous positive airway pressure (CPAP) Hypertension History of noncompliance with medical treatment Surgical History No history of previous surgery Family History Family History Mother Diabetes Father No problems noted. Daughter No problems noted. Son Autism Social History Social History Alcohol intake: current Alcohol intake frequency: holidays/special occasions only Patient Tobacco Use Status: Current everyday Tobacco user Tobacco use type: Cigarette Cigarettes Per Day: 8 Smoked in Last 30 Days: No Use of substances other than those prescribed or required for medical reasons: No Advance Directives: No Advance Directives Information Provided: Yes Do you have a plan to hurt others: No Plan Physical Exam Vital Signs: Vital Signs: Last Vital Signs Temp 97.1 F 10/08/24 13:08 Pulse 88 10/08/24 13:08 Resp 24 H 10/08/24 13:08 BP 105/71 10/08/24 13:08 Pulse Ox 98 10/08/24 13:08 O2 Del Method Room Air 10/08/24 13:08 BMI result Body Mass Index 32.9 Const: General: cooperative, healthy appearing, comfortable and no acute distress Orientation/consciousness: patient oriented x3 Limitations: no limitations HEENT: Head: Yes normal to inspection Ears: hearing grossly normal bilaterally General nose exam: Normal external nose present Face and sinus: Yes normal facial exam Mouth: Normal oral and palatal mucosa present Throat: Yes posterior oropharynx normal Eyes: General: appearance normal, both eyes and all related structures Pupils: Equal, round and reactive pupils present Neck: Neck: Yes normal visual inspection Chest: Chest palpation & inspection: normal inspection of the chest Resp: Effort & Inspection: normal respiratory effort Auscultation: clear to auscultation bilaterally Cardio: Rate: regular rate Rhythm: regular rhythm Peripheral pulses: Peripheral pulses 2+ throughout GI: Inspection: Yes normal to inspection Palpation (GI): Soft to palpation and nontender Auscultation: normal bowel sounds Back/Spine/Pelvis: Thoracic/Lumbar Spine: thoracic and lumbar spine normal to inspection Skin: General skin exam: no rashes or lesions noted Neuro: General: patient oriented x3, no focal motor deficits and normal sensation to monofilament Cranial nerves: Yes Equal, round and reactive pupils present Cognition (Neuro): normal cognition Speech: No Abnormal speech present Gait exam (Neuro): Normal gait present Motor exam (neuro): 5/5 motor strength present throughout Extrem: Other: patient has a palpable deformity to the Achilles tendon. Positive Sykes exam CMS intact distally Course Course Course Narrative: This is an RME performed by Uriel Son CNP: Additional HPI, ROS, PE not included below will be deferred to primary provider. Patient is a 44-year-old male presents emergency department for evaluation of traumatic right foot pain after someone accidentally stepping onto the ankle while playing basketball. Plan: XR Reevaluation(s) Reevaluation #1: ultrasound is concerning for Achilles tendon rupture. I discussed the case with Orthopedics. They recommended patient the patient in a posterior splint with slight dorsiflexion with strict nonweightbearing and follow up outpatient in the office. Medications Administered Discontinued Medications Generic Name Dose Route Start Last Admin Trade Name Freq PRN Reason Stop Dose Admin Oxycodone HCl 10 mg 10/08/24 14:15 10/08/24 14:22 Oxycodone Hcl Immed Release 5 Mg Tablet PO 10/08/24 14:16 10 mg ONCE ONE Administration Medical Decision Making Medical Decision Making [facility] Narrative: this is a 44-year-old male with a history of hypertension and sleep apnea who presents to the ER with complaints of right posterior ankle pain after an injury which occurred today while playing basketball. Patient reports he was playing basketball and a friend stepped on the back of his right ankle. He immediately heard a snapping sensation and felt pain. Since then he can not ambulate on the extremity. He has no associated numbness, weakness or tingling of the extremity patient has a palpable deformity to the Achilles tendon. Positive Sykes exam CMS intact distally likely Achilles tendon injury. Will obtain x-rays, US, provide analgesia Differential Diagnosis Differential Diagnoses: The differential diagnosis associated with the presentation includes Achilles tendon rupture Admission/Observation Consideration of admission/observation: Escalation of care including admission/observation considered Consult Healthcare Provider Management of the patient was discussed with: Release Manager Orthopedic (deo walton) Independent Interpretation I performed an independent interpretation of an: Plain X-Ray and Ultrasound Interpretation: I independently viewed the x-ray and the ultrasound agree with the radiology report Radiology Impression Discussion of test interpretation with radiology: I have reviewed the radiologist's reading. Radiologist Impression: [place] [id number] Ultrasound Report Signed Patient: Dallin Scott MR#: [id number] : 1980 Acct:[id number] Age/Sex: 44 / M ADM Date: 10/08/24 Loc: .ED Attending Dr: Ordering Physician: Kaitlin Samayoa NP Date of Service: 10/08/24 Procedure(s): US extremity nonvascular Accession Number(s): [id number] cc: [facility]; Kaitlin Samayoa NP~ CLINICAL HISTORY: Right posterior ankle pain, deformity, r.o ashley Ultrasound of the soft tissues of the right ankle COMPARISON: None FINDINGS: Dedicated ultrasound imaging was performed along the distal right Achilles tendon. Right Achilles tendon is enlarged and edematous when compared with the left Achilles tendon. Complex irregularity measuring approximately 1.8 x 1.1 cm present within the distal Achilles tendon with disruption of the architecture and normal Achilles tendon striations not visualized. No organizing fluid collection identified. No foreign body identified. IMPRESSION: 1. Probable distal right Achilles tendon tear/rupture. This document has been electronically signed by: Jhoan Segura MD on 10/08/2024 16:09:[address] [address] XRay Report Signed Patient: Dallin Scott MR#: [id number] : 1980 Acct:[id number] Age/Sex: 44 / M ADM Date: 10/08/24 Loc: HO.ED Attending Dr: Ordering Physician: Brianna Son CNP Date of Service: 10/08/24 Procedure(s): XR foot RT min 3V Accession Number(s): [id number] cc: Brianna Son [facility]; [place],[facility] CLINICAL HISTORY: fall, pain Three views of the right foot. COMPARISON: None FINDINGS: No ankle joint effusion. Tiny calcaneal enthesophyte present. Normal tarsometatarsal alignment. Tarsals, metatarsals and phalanges appear intact. IMPRESSION: 1. No radiographic evidence of acute injury to the right foot. This document has been electronically signed by: Jhoan Segura MD on 10/08/2024 13:50:31 COMPARISON: None FINDINGS: No ankle joint effusion. Tiny calcaneal enthesophyte present. Ankle mortise appears symmetric on non-stressed views. Talar dome appears intact. Distal tibia and fibula appear intact. Visualized tarsal bones appear intact. IMPRESSION: 1. No radiographic evidence of acute injury to the right ankle. This document has been electronically signed by: Jhoan Segura MD on 10/08/2024 13:49:25 Procedures Orthopedic Splinting/Casting Injury #1: Side: right Lower Extremity Injury Location: lower leg Lower Extremity Immobilizer: posterior splint (mild dorsiflexion) Other Orthopedic Equipment: crutches Discharge Plan Discharge Clinical Impression: Achilles tendon rupture Patient Disposition: Home, Self-Care Instructions: Achilles Tendon Rupture (ED), Splint Care (ED) Additional Instructions: keep the splint on at all times. Do not get it wet. Strict nonweightbearing with crutches Elevate the extremity Take the medication as prescribed Call orthopedics tomorrow to establish a follow up appointment Prescriptions: New oxycodone 10 mg tablet 10 mg PO Q6H PRN (Reason: pain) Qty: 12 0RF Rx Instructions: Partial Fill upon patient request. No Action cholecalciferol (vitamin D3) 125 mcg (5,000 unit) capsule 125 mcg PO DAILY Qty: 90 0RF mecobalamin (vitamin B12) 1,000 mcg tablet,disintegrating 1,000 mcg sublingual DAILY Qty: 90 0RF Rx Instructions: place tablet under tongue and allow to dissolve for at least30 secs before swallowing (DME) CPAP Machine/Device Device See Rx Instructions .Route Rx Instructions: As directed clonazepam 0.5 mg tablet 0.25 mg PO BEDTIME Rx Instructions: administer 30 minutes before bedtime amlodipine 2.5 mg tablet 2.5 mg PO DAILY Qty: 90 0RF Zepbound 2.5 mg/0.5 mL pen injector 2.5 mg subcut QWEEK Qty: 2 0RF Rx Instructions: for 4 weeks Referrals: [facility] [place] Orthopedic Surgeons [Provider Group] - 1 week Print Language: Yoruba
[2024-10-08] MEDS: oxyCODONE HCl Immed Release 5 MG TABLET 10 MG PO (14:22)
[2024-10-08 17:19] VITALS: BP 105/71; PULSE 88; RESP 24; TEMP 36.2; O2SAT 98
== END 2024-10-08 17:19 | disposition home or self-care (01) ==
PROVIDERS: Emergency Provider Internal Medicine; PCP Dentist General Practice
DX: S86.011A Strain of right Achilles tendon, initial encounter (principal); X50.3XXA Overexertion from repetitive movements, initial encounter; Y93.67 Activity, basketball; Y92.9 Unspecified place or not applicable; Y99.9 Unspecified external cause status; M25.571 Pain in right ankle and joints of right foot; I10 Essential (primary) hypertension
CPT/HCPCS: 73610; 73630; 76882; 99284

== ENCOUNTER → 2024-10-08 13:10 | Outpatient (BNV) | payer MEDICAID, SELFPAY | PROVIDERS: Emergency Provider Internal Medicine; PCP Dentist General Practice; Visit Provider Radiology Diagnostic Radiology | DX: M25.571 Pain in right ankle and joints of right foot (principal); M79.671 Pain in right foot; S86.011A Strain of right Achilles tendon, initial encounter | CPT/HCPCS: 73610; 73630; 76882 ==

== ENCOUNTER 2024-10-09 13:50 | Outpatient (AMB) | payer MEDICAID, SELFPAY ==
--- NOTE | 2024-10-09 13:57 | MHC.OFFVIS ---
Intake Visit Reasons: ER-Right Achilles Tendon Rupture, DOI 10/08/24 Intake Note: Dallin is a 44 year old male who presents today with crutches and a short leg splint for a evaluation of his right ankle pain, DOI 10/08/24. Patient states that he was playing basket ball and one of his friends stepped on his ankle. He informed me that he heard a cracking sound when the injury happened. Patient is having a lot of pain today behind his ankle. He states that he was prescribed oxycodone 10 mg with relief. Metal Flow Coordinator: Metal Flow Coordinator Present (Joe([id number])) Allergies No Known Allergies Allergy (Verified 10/09/24 14:01) HPI HPI ER-Right Achilles Tendon Rupture, DOI 10/08/24: Details: The patient is a 44-year-old male who presents the office today for evaluation of a right Achilles tendon rupture that occurred on 10/08/2024 while playing basketball. He reports that his friend stepped on the back of a shoe and he felt a pop and instant pain to the right ankle. He presented to the emergency department where an ultrasound was obtained and he was diagnosed to have a Achilles tendon rupture. He was placed into a short-leg posterior splint in plantar flexion. He was instructed to follow-up with orthopedics outpatient for further evaluation and treatment. [facility] Medical History History of smoking Sleep apnea treated with continuous positive airway pressure (CPAP) Hypertension History of noncompliance with medical treatment Surgical History No history of previous surgery Family History Mother Diabetes Father No problems noted. Daughter No problems noted. Son Autism Social History (Updated 10/09/24 @ 14:02 by Allison Torres) Alcohol intake: current Alcohol intake frequency: holidays/special occasions only Patient Tobacco Use Status: Current everyday Tobacco user Tobacco use type: Cigarette Cigarettes Per Day: 8 Current occupational status: unemployed Review of Systems Const All systems reviewed & are unremarkable except as noted in HPI and below Physical Exam Const General: cooperative, healthy appearing and no acute distress Resp Effort & Inspection: normal respiratory effort and able to speak in complete sentences Cardio Rate: regular rate Peripheral pulses: Peripheral pulses 2+ throughout Skin Lesions: no lesions Rashes: no rashes Extrem Other: Right ankle: Palpable deformity of the Achilles tendon attachment. Positive Sykes's. Extreme tenderness to palpation to the Achilles the tendon attachment site. NVI. Assessment & Plan Assessment & Plan (1) Rupture of right Achilles tendon: Code(s): S86.011A - Strain of right Achilles tendon, initial encounter Category: Medical Plan The patient is a 44-year-old male who presents the office today for evaluation of a right Achilles tendon rupture that occurred on 10/08/2024 while playing basketball. He reports that his friend stepped on the back of a shoe and he felt a pop and instant pain to the right ankle. He presented to the emergency department where an ultrasound was obtained and he was diagnosed to have a Achilles tendon rupture. He was placed into a short-leg posterior splint in plantar flexion. He was instructed to follow-up with orthopedics outpatient for further evaluation and treatment. Dr. Hoffman is available to see the patient with me in the office today in a collaborative treatment plan was created. Patient was placed into a tall walking boot with 3 wedges. He will remain nonweightbearing for the next 2 weeks. Have placed an order for stat physical therapy referral. Additionally, the physical therapy rehab protocol was faxed to physical therapy while in the office today. We discussed risks benefits and alternatives to surgical intervention and the patient has decided to move forward with non operative intervention. He will return back in 4 weeks, sooner if needed. Right posterior ankle ultrasound obtained on 10/08/2024: IMPRESSION: 1. Probable distal right Achilles tendon tear/rupture. Orders: Orders PT Evaluation and Treatment Today S86.011A - Strain of right Achilles tendon, initial encounter Coding Level of Care Code New Pt Level 4 (88293) Diagnoses Rupture of right Achilles tendon S86.011A
--- OUTSIDE RECORDS SUMMARY | 2024-10-09 15:37 | XMS_ITS | Encounter Summary ---
Author Organization [employer] Address [address] [place] [address] Care Team Providers Care Adjunct Professor Name Role Phone Unavailable Primary Care Provider Unavailabl e Reason for Visit * Reason Onset Date Comments New Patient 05/14/2023 Encounter Details Date Type Department Care Team (Late st Contact Info) Description 05/14/2023 Telephone [facility] [address] [place] [address] Jw Vale MD [address] [place] [address] New Patient Social History Tobacco Use Types Packs/Day Years Used Date Smoking Tobacco: Never Assessed Sex and Gender Information Value Date Recorded Sex Assigned at Male 05/14/2023 10:36 AM EDT Legal Sex Male 10:35 AM EDT Gender Identity Male 05/14/2023 10:36 AM EDT Sexual Orientation Don't know 05/14/2023 10 :36 AM EDT documented as of this encounter Miscellaneous Notes * Telephone Encounter - Frank Palomino - 05/14/2023 10:39 AM EDT 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 EFFECTIVE SINCE 05/14/2023 documented in this encounter Plan of Treatment Not on file documented as of this encounter Visit Diagnoses Not on filedocumented in this encounter
--- OUTSIDE RECORDS SUMMARY | 2024-10-09 15:37 | XMS_ITS | Clinical Summary ---
Author Organization [facility] Address [address] [place] [address] Care Team Providers Care Pasta Maker Name Role Phone Unavailable Primary Care Provider Unavailabl e Source Comments PLEASE NOTE, if this patient is a minor, it may be UNLAWFUL to discuss sensitive information that is contained in these records (such as FAMILY PLANNING, MENTAL HEALTH or SUBSTANCE ABUSE) with the minor patient's parent or other person without the patient's specific authorization.[facility] Social History Tobacco Use Types Packs/Day Years Used Date Smoking Tobacco: Never Assessed Social Connections Answer Date Recorded Connectedness 0 05/25/2024 Financial Resource Strain Answer Date R ecorded Financial Resource Strain 0 2023 Stress Answer Date Recorded Stress 0 05/25/2024 Physical Activity Answer Date Recorded Physical Activity 0 05/25/2024 Food Insecurity Answer Date Recorded Food 0 05/25/2024 Transportation Needs Answer Date Record ed Transportation 0 05/25/2024 Housing Stability Answer Date Recorded Housing 0 05/25/2024 Safety and Environment Answer Date Dago rded Safety 0 05/25/2024 Utilities Answer Date Recorded Utilities 0 05/25/2024 Employment Answer Date Recorded Stress 0 05/25/2024 Sex and Gender Information Value Date Recorded Sex Assigned at Not on file Legal Sex Male 7:12 AM PDT Gender Identity Not on file Sexual Orientation Not on file Plan of Treatment Upcoming Encounters Date Type Department Care Team (Late st Contact Info) Description 11/02/2024 11:40 AM EDT Office Visit [facility] [address] [place] [id number] Autumn Alba PA-C [address] [place] [address] [address] [place] [address] Health Maintenance Due Date Last Done Comments Anxiety Screening 1979 Diabetes Screening 1979 Hepatitis C Screening 1979 Lipid Screening 1979 Tobacco Screening 1979 HIV Screening 1994 Hypertension Screening (#1) 1997 Imm-DTaP/Tdap/Td (1 - Tdap) 1998 Imm-Hepatitis B (1 of 3 - 19+ 3-dose series) 8 [id number] ( season) 2024 Imm-Influenza (#1) 2024 CT Colonography 2024 Colonoscopy 2024 Colorectal Cancer Screening 2024 FIT/gFOBT 2024 Fecal DNA 2024 Flexible Sigmoidoscopy 2024 Alcohol and Drug Screen 07/12/2024 Depression Annual Screen 07/12/[address] [employer]
--- OUTSIDE RECORDS SUMMARY | 2024-10-09 15:37 | XMS_ITS | Clinical Summary ---
Author Organization [employer] Address [address] [place] [address] Care Team Providers Care Ophthalmic Lens Inspector Name Role Phone Unavailable Primary Care Provider Unavailabl e Social History Tobacco Use Types Packs/Day Years Used Date Smoking Tobacco: Never Assessed Sex and Gender Information Value Date Recorded Sex Assigned at Male 05/14/2023 10:36 AM EDT Legal Sex Male 10:35 AM EDT Gender Identity Male 05/14/2023 10:36 AM EDT Sexual Orientation Don't know 05/14/2023 10 :36 AM EDT Plan of Treatment Health Maintenance Due Date Last Done Comments CT Colonography 1979 Colonoscopy 1979 Colorectal Cancer Screening 1979 Depression Screening 1979 FIT DNA/Cologuard 1979 FIT 1979 FOBT 1979 HIV Screening 1979 Lipid Panel 1979 SDOH Screening 1979 Sigmoidoscopy 1979 Alcohol/Substance Use Screening 1991 Tobacco Screening 1991 Family Planning (PISQ) 1994 Hepatitis C Screening 1997 DTaP/Tdap/Td Vaccines (1 - Tdap) 1998 Hepatitis B Vaccines (1 of 3 - 19+ 3-dose series) 1998 COVID-19 Vaccine (2023-2 5 season) 2024 Influenza Vaccine (#1) 2024 Zoster Vaccines (1 of 2) 2029 RSV Patients and Pa tients Aged 60 years or older (1 - 1-dose 75+ series) 2054 HIB Vaccines Aged Out No longer eligi ble based on patient's age to complete this topic HPV Vaccines Aged Out No longer eligi ble based on patient's age to complete this topic Hepatitis A Vaccines Aged Out No long er eligible based on patient's age to complete this topic IPV Vaccines Aged Out No longer eligi ble based on patient's age to complete this topic Meningococcal Vaccine Aged Out No tom arun eligible based on patient's age to complete this topic Pneumococcal Vaccine: Pediat rics (0 to 5 Years) and At-Risk Patients (6 to 49) Years) Aged Out No longer eligible b ased on patient's age to complete this topic RSV under 20 months Aged Out No longe r eligible based on patient's age to complete this topic Rotavirus Vaccines Aged Out No longer eligible based on patient's age to complete this topic Insurance [facility] C3
--- OUTSIDE RECORDS SUMMARY | 2024-10-09 15:37 | XMS_ITS | Clinical Summary ---
Author Organization [facility] ity Address [address] [place] [address] Care Team Providers Care Power Shovel Mechanic Name Role Phone Unavailable Primary Care Provider Unavailabl e Social History Tobacco Use Types Packs/Day Years Used Date Smoking Tobacco: Never Assessed Sex and Gender Information Value Date Recorded Sex Assigned at Not on file Legal Sex Male 9:30 AM EST Gender Identity Not on file Sexual Orientation Not on file Plan of Treatment Health Maintenance Due Date Last Done Comments DTaP,Tdap,and Td Vaccines (1 - Tdap) 1998 Hepatitis B Vaccines (1 of 3 - 19+ 3-dose series) 1998 Cholesterol Screening (Lipid Panel) 06/08/2022 Colorectal Cancer Screening: Colonoscopy 06/08/2022 Depression Screening 06/08/2022 HIV Screening 06/08/2022 Hepatitis C Screening 06/08/2022 Social Influencers of Health Screening 06/08/2022 COVID-19 Vaccine (2023-2 5 season) 2024 Influenza Vaccine (#1) 2024 HIB Vaccines Aged Out No longer eligi [...] on patient's age to complete this topic MMR Vaccines Aged Out No longer eligi ble based on patient's age to complete this topic Meningococcal ACWY Vaccine Aged Out N o longer eligible based on patient's age to complete this topic Meningococcal B Vacine Aged Out No lo nger eligible based on patient's age to complete this topic Pneumococcal Vaccine: Pediat rics (0 to 5 Years) and At-Risk Patients (6 to 64 Years) Aged Out No longer eligible b ased on patient's age to complete this topic RSV Immunization Patients Un yovanny 20 months Aged Out No longer eligible b ased on patient's age to complete this topic Varicella Vaccines Aged Out No longer eligible based on patient's age to complete this topic
--- OUTSIDE RECORDS SUMMARY | 2024-10-09 15:37 | XMS_ITS | Clinical Summary ---
Author Organization [facility] [address] [facility] Address [address] [place] [address] Care Team Providers Care Urologist Physician Name Role Phone No, Pcp (Do Not Change Name) Primary Care Provid er Unavailable Allergies No known active allergies Medications albuterol (PROVENTIL HFA;VENTOLIN HFA;PROAIR HFA) 90 mcg/actuation HFA aerosol inhaler Inhale 2 puffs into the lungs every 4 (four) hours as needed for Wheezing. 6.7 g 04/20/2019 Active Social History Tobacco Use Types Packs/Day Years Used Date Smoking Tobacco: Every Day Cigarettes 0.3 20 Smokeless Tobacco: Never Alcohol Use Standard Drinks/Week Comments Never 0 (1 standard drink = 0.6 oz pur e alcohol) AUDIT-C Answer Date Recorded Frequency of Alcohol Consumption Never 04/20/2019 Average Number of Drinks Not on file 019 Frequency of Binge Drinking Not on file 04/11 Sex and Gender Information Value Date Recorded Sex Assigned at Not on file Legal Sex Male 4:44 PM EDT Gender Identity Not on file Sexual Orientation Not on file Last Filed Vital Signs Vital Sign Reading Time Taken Comments Blood Pressure 159/97 04/20/2019 5:13 PM EDT Pulse 80 04/20/2019 5:34 PM EDT Temperature 36.3 ??C (97.3 ??F) 04/20/2019 5:13 PM ED T Respiratory Rate 18 04/20/2019 5:13 PM EDT Oxygen Saturation 98% 04/20/2019 5:34 PM EDT pretreatment Inhaled Oxygen Concentration - - Weight 95.3 kg (210 lb) 04/20/2019 5:15 PM EDT Height 167.6 cm (5' 6 ) 04/20/2019 5:15 PM EDT Body Mass Index 33.89 04/20/2019 5:15 PM EDT Plan of Treatment Health Maintenance Due Date Last Done Comments HIV screening 1992 Hepatitis C screening 1997 Tetanus adult (Td q 10,TDAP once) 1999 Lipid disorder screening 2019 Influenza vaccine 02/10/2024 Covid-19 vaccine series (2023- season) 2024 Colon cancer screening, Colonoscopy 2024 Diabetes screening 2024 RSV Immunization (1 - 1-dose 75+ series) 2054 Meningococcal Vaccine Aged Out No tom arun eligible based on patient's age to complete this topic Pneumococcal Vaccine (2 - 49 years) Aged Out No longer eligible based on patient's age to complete this topic Care Teams Urologist Physician Relationship Specialty Start Date End Date No, Pcp (Do Not Change Name) PCP - General 04/20/19
== END 2024-10-09 14:30 | disposition home or self-care (01) ==
LOC: HO.HOS 13:51
PROVIDERS: PCP Dentist General Practice; Visit Provider Physician Assistant
DX: S86.011A Strain of right Achilles tendon, initial encounter (principal)
CPT/HCPCS: 99204

== ENCOUNTER → 2024-10-09 13:50 | Outpatient (BNVA) | payer MEDICAID, SELFPAY | PROVIDERS: PCP Dentist General Practice; Visit Provider Physician Assistant | DX: S86.011A Strain of right Achilles tendon, initial encounter (principal) | CPT/HCPCS: 99212 ==

== ENCOUNTER 2024-10-17 08:21 | Day surgery (SDC) | payer MEDICAID, SELFPAY ==
--- OUTSIDE RECORDS SUMMARY | 2024-10-10 12:43 | XMS_ITS | Clinical Summary ---
Author Organization [facility] Address [address] [place] [address] Care Team Providers Care Lcpc Name Role Phone Unavailable Primary Care Provider [...] AM EDT Office Visit [facility] [address] [place] [phone] Autumn Alba PA-C [address] [place] [address] J[address] [place] [address] Health Maintenance Due Date Last Done Comments Anxiety Screening 1979 Diabetes Screening 1979 Hepatitis C Screening 1979 Lipid Screening 1979 Tobacco Screening 1979 HIV Screening 1994 Hypertension Screening (#1) 1997 Imm-DTaP/Tdap/Td (1 - Tdap) 1998 Imm-Hepatitis B (1 of 3 - 19+ 3-dose series) 8 [id number] ( season) 2024 Imm-Influenza (#1) 2024 CT Colonography 2024 Colonoscopy 2024 Colorectal Cancer Screening 2024 FIT/gFOBT 2024 Fecal DNA 2024 Flexible Sigmoidoscopy 2024 Alcohol and Drug Screen 07/12/2024 Depression Annual Screen 07/12/[address] ACO
--- OUTSIDE RECORDS SUMMARY | 2024-10-10 12:43 | XMS_ITS | Clinical Summary ---
Author Organization [employer] Address [address] [facility] [address] [place] [address] Care Team Providers Care Corrections Identification Technician Name Role Phone Unavailable Primary Care Provider [...] patient's age to complete this topic Insurance [facility] C3
--- OUTSIDE RECORDS SUMMARY | 2024-10-10 12:43 | XMS_ITS | Clinical Summary ---
Author Organization [facility] [address] [facility] Address [address] [place] [address] Care Team Providers Care Die Maker Apprentice Name Role Phone No, Pcp (Do Not [...] age to complete this topic Care Teams Die Maker Apprentice Relationship Specialty Start Date End Date No, Pcp (Do Not Change Name) PCP - General 04/20/19
--- OUTSIDE RECORDS SUMMARY | 2024-10-10 12:43 | XMS_ITS | Clinical Summary ---
Author Organization [facility] [employer] [facility] ity Address [address] [place] [address] Care Team Providers Care Impregnating Tank Operator Name Role Phone Unavailable Primary Care Provider [...]
--- OUTSIDE RECORDS SUMMARY | 2024-10-10 12:43 | XMS_ITS | Encounter Summary ---
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 EFFECTIVE SINCE 05/14/2023 documented in this encounter Plan of Treatment Not on file documented as of this encounter Visit Diagnoses Not on filedocumented in this encounter
--- NOTE | 2024-10-16 13:37 | HO.ANESPROP2 ---
Documented by User: Anais Lee NP 10/16/24 13:40 HPI - Anesthesia Eval Consult details Narrative: 44yo M for Right Achilles Tendon Repair Anesthesia Pre-Procedure Meds Is the patient on any of the following meds?: GLP1/DPP4 PMFSH Active Problems Active Problems: All Active Problems Rupture of right Achilles tendon (Acute) Abnormal EKG (Acute) Vitamin B12 deficiency (Acute) Vitamin D deficiency (Acute) Sleep apnea treated with continuous positive airway pressure (CPAP) (Acute) Hypertension (Acute) BMI 35.0-35.9,adult (Acute) Obesity (Acute) Past Medical History Medical History History of smoking Sleep apnea treated with continuous positive airway pressure (CPAP) Hypertension History of noncompliance with medical treatment Family History Family History Mother Diabetes Father No problems noted. Daughter No problems noted. Son Autism Surgical History Surgical History No history of previous surgery History of Problems with Anesthesia: No Social History Social History Are you a primary residential care facility manager to a significant other at home: No Do you presently have visiting nurse or other home services: No Alcohol intake: current Alcohol intake frequency: holidays/special occasions only Patient Tobacco Use Status: Current everyday Tobacco user Tobacco use type: Cigarette Cigarettes Per Day: 8 Use of substances other than those prescribed or required for medical reasons: No Are you DNR?: No Advance Directives: No Advance Directives Information Provided: Yes Current occupational status: unemployed Meds Allergies Allergy/AdvReac Type Severity Reaction Status Date / Time No Known Allergies Allergy Verified 10/17/24 09:07 Home Medications ?Medication ?Instructions ?Recorded ?Confirmed ?Last Taken ?Type CPAP (CPAP Machine/Device) 05/29/24 06/05/24 Unknown History clonazepam 0.5 mg tablet 0.25 mg PO BEDTIME 06/05/24 10/17/24 Unknown History Exam Narrative Narrative: ECHO 2023 Conclusions: - The left ventricular systolic function is normal. The calculated ejection fraction is 67% by biplane method. - No obvious valvular pathology seen on this study. Exercise Stress Test 2023 Protocol: JUVE Max HR: 151 BPM 86% of Pred: 175 BPM Max BP: 148/068 mmHG Max Work Load: 10.1 METS Exercise Stress Test with exercise 8 min 16 secs of Juve Protocol, achieving 85% MPHR, with mild SOB, no chest discomfort, without any arrythmias, with normotensive response to exercise. Without any EKG changes meeting criteria for ischemia. In recovery, breathing quickly returned to baseline. Test reviewed with Dr. Muhammad. Test performed by Gaviota Lo SENIOR CORPORATE STRATEGY MANAGER and Luis Eduardo Kemp SENIOR CORPORATE STRATEGY MANAGER EKG 2023 Vent. Rate : 062 BPM Atrial Rate : 062 BPM P-R Int : 158 ms QRS Dur : 078 ms QT Int : 428 ms P-R-T Axes : 044 -23 001 degrees QTc Int : 434 ms Normal sinus rhythm Nonspecific T wave abnormality Abnormal ECG When compared with ECG of 26-MAY-2024 08:36, Nonspecific T wave abnormality now evident in Inferior leads Assessment and Plan Assessment Anesthesia Assessment: Chart Reviewed Final Anesthetic Review History of Problems with Anesthesia: No Documented by User: Sherin Jenkins MD 10/17/24 10:23 [facility] Past Medical History Medical History History of smoking Sleep apnea treated with continuous positive airway pressure (CPAP) Hypertension History of noncompliance with medical treatment Family History Family History Mother Diabetes Father No problems noted. Daughter No problems noted. Son Autism Family history of problems with anesthesia: No Surgical History Surgical History No history of previous surgery Social History Social History Are you a primary residential care facility manager to a significant other at home: No Do you presently have visiting nurse or other home services: No Alcohol intake: current Alcohol intake frequency: holidays/special occasions only Patient Tobacco Use Status: Current everyday Tobacco user Tobacco use type: Cigarette Cigarettes Per Day: 8 Use of substances other than those prescribed or required for medical reasons: No Are you DNR?: No Advance Directives: No Advance Directives Information Provided: Yes Current occupational status: unemployed Meds Allergies Allergy/AdvReac Type Severity Reaction Status Date / Time No Known Allergies Allergy Verified 10/17/24 09:07 Home Medications ?Medication ?Instructions ?Recorded ?Confirmed ?Last Taken ?Type CPAP (CPAP Machine/Device) 05/29/24 06/05/24 Unknown History clonazepam 0.5 mg tablet 0.25 mg PO BEDTIME 06/05/24 10/17/24 Unknown History Exam Airway Mallampati Class: III TM Dist: <=3cm Neck ROM: Full Heart: rrr Lungs: cta Assessment and Plan Assessment Anesthesia Assessment: Anesthesia Plan Discussed Final Anesthetic Review Family History of Problems with Anesthesia: No NPO: Yes ASA Class: III Final Preanesthetic Review: No Changes in Pt Med Stat, Meds/Allgs Chart Reviewed, Consent Obtained/Reviewed and Anes Risks/Benef Reviewed Patient Risk: Intermediate Anesthetic Plan Anesthetic Plan: GA, Regional Block and Agree w/ Assess. and Plan Disposition: Standard PACU
[2024-10-17] VITALS (12 sets, daily range): BP systolic 120–148; BP diastolic 76–86; PULSE 70–92; RESP 12–20; TEMP 36.1–36.3; O2SAT 92–97; BMI 32.9
--- NOTE | 2024-10-17 09:43 | MHC.SHP ---
Pre-Procedural Eval Section A - 24 Hr Update-Section A only Date of Service: 10/17/24 The patient is an INPATIENT: No Changes since office visit: No Cold of Flu in the past 2 weeks, No New Medical Problems, No Changes in Medication and No Patient answered all questions The patient has been examined within 24 hours of the surgical procedure. The History & Physical has been completed within 30 days and I have reviewed it.: Yes Section B - Complete if H&P > 30 days Chief Complaint: Unspecified injury of right Achilles tendon, initi Allergies: Allergies Allergy/AdvReac Type Severity Reaction Status Date / Time No Known Allergies Allergy Verified 10/17/24 09:07 Plan I have reviewed the history and physical and performed a pertinent physical examination on my patient. No changes have occurred unless specified. Time Spent With Patient Time: Total time managing care of this patient today ____ minutes.
[2024-10-17] MEDS: Lactated Ringers 1,000 ML 100 ML IVCONT (09:44)
[2024-10-17] MEDS: ceFAZolin Sodium/Dextrose,Iso 2 GM/50 ML PIGGYBACK IV (12:35)
[2024-10-17] MEDS: Acetaminophen 1,000 MG/100 ML PIGGYBACK 400 MG IV (12:35)
--- NOTE | 2024-10-17 13:53 | W.PM.OPN ---
Operative Note Operative Note Date of Service: 10/17/24 Narrative: Date of Service: 10/17/24 Pre-op diagnosis: Right achilles rupture Post-op diagnosis: same Procedure: Right achilles repair Implants: none Surgeon: Ulysses Hoffman MD Anesthesia: GETA and local Was an Oracle Erp Developer used for this Procedure?: Yes Oracle Erp Developer: Riana Schneider Estimated blood loss (mL): 10 Tourniquet time (min): 45 IV fluids (mL): 850 Pathology: none sent Condition: stable Disposition: PACU Patient was brought to the operating room and placed prone on the surgical table. He was prepped and draped in standard sterile fashion and a time out was called to identify proper site, proper procedure and IV antibiotics per weight were administered. I began by making a 2 cm incision over the Achilles tendon, approx 4-5 cm proximal to the insertion. Full thickness skin flaps were developed and there was a complete rupture of the ashley and the musculotendinous junction. I had opened up the incision proximally an additional 1 cm to fully visualize the proximal tendon. There was mild retraction of a portion of the proximal tendon such that I released the paratenon and then with a Jordana clamp was able to retrieve the torn retracted proximal tendon. I debrided a the necrotic tissue and then using a 2. FiberWire and a Krackow stitch in both the distal and proximal fragment reapproximated to tendon fragments with the foot and hyper plantar flexion. I the used a locked FiberWire [place] stitch through the proximal and distal tendon. Then, while in plantar flexion oversewed each tendon to each other. The repair was stable and there was a negative Sykes. I irrigated copiously once I was satisfied with the repair. I then closed with 3.0 Vicryl and mitzy. Patient was placed in a proving vacuum assisted dressing and a well-padded posterior splint was applied with the plan plantar flexion. Local anesthetic was injected around the incision site prior to dressing placement. Patient was then extubated brought to recovery room stable condition. There were no known complications.
[2024-10-17] MEDS: HYDROmorphone HCl 0.5 MG/0.5 ML SYRINGE IVPUSH (14:30)
[2024-10-17] MEDS: HYDROmorphone HCl 0.5 MG/0.5 ML SYRINGE 0.25 MG IVPUSH ×4 (14:50→15:05)
== END 2024-10-17 15:41 | disposition home or self-care (01) ==
PROVIDERS: PCP Dentist General Practice; Visit Provider Orthopaedic Surgery
PROC: (CPT 27650; principal; 2024-10-17 12:10)
DX: S86.011A Strain of right Achilles tendon, initial encounter (principal); W50.0XXA Accidental hit or strike by another person, initial encounter; Y93.67 Activity, basketball; Y92.9 Unspecified place or not applicable; Y99.9 Unspecified external cause status; I10 Essential (primary) hypertension; Z91.199 Patient's noncompliance with other medical treatment and regimen due to unspecified reason; G47.33 Obstructive sleep apnea (adult) (pediatric); Z99.89 Dependence on other enabling machines and devices; F17.210 Nicotine dependence, cigarettes, uncomplicated; Z56.0 Unemployment, unspecified
CPT/HCPCS: 27650; J0131; J0690; J1100; J1171; J2003; J2250; J2405; J2704; J2795; J3010

== ENCOUNTER → 2024-10-17 08:21 | Outpatient (BNV) | payer MEDICAID, SELFPAY | PROVIDERS: PCP Dentist General Practice; Visit Provider Orthopaedic Surgery | DX: S86.011A Strain of right Achilles tendon, initial encounter (principal) | CPT/HCPCS: 27650; 97605 ==

== ENCOUNTER 2024-10-26 09:34 | Outpatient (AMB) | payer MEDICAID, SELFPAY ==
--- NOTE | 2024-10-26 09:44 | MHC.OFFVIS ---
Intake Visit Reasons: PO RT achilles tendon repair 10/17/24 NE Intake Note: Dallin is a 44 year old male who presents today for a post operative visit s/p right achilles tendon repair, DOS 10/17/24 NE. Patient reports still having a lot of pain as well as difficulty with sleeping at night. He is requesting a refill on oxycodone. States having discomfort in splint at the heel. Allergies No Known Allergies Allergy (Verified 10/26/24 09:50) HPI HPI PO RT achilles tendon repair 10/17/24 NE: Details: 44-year-old gentleman returns to the office today status post right Achilles tendon repair on 10/17/[address] Hoffman. States he is doing well. He forgot to take his pain medication last night therefore he has some mild discomfort. [facility] Medical History History of smoking Sleep apnea treated with continuous positive airway pressure (CPAP) Hypertension History of noncompliance with medical treatment Surgical History No history of previous surgery Family History Mother Diabetes Father No problems noted. Daughter No problems noted. Son Autism Social History Are you a primary nurse care manager to a significant other at home: No Do you presently have visiting nurse or other home services: No Alcohol intake: current Alcohol intake frequency: holidays/special occasions only Patient Tobacco Use Status: Current everyday Tobacco user Tobacco use type: Cigarette Cigarettes Per Day: 8 Current occupational status: unemployed Review of Systems Const All systems reviewed & are unremarkable except as noted in HPI and below Physical Exam Extrem Other: Right Achilles incision is clean dry and intact. No swelling or erythema. Office Procedures Casting/Splints 35837-[id number] Leg Cast Application Procedure code (CPT) selection complete Assessment & Plan Assessment & Plan (1) Rupture of right Achilles tendon: Code(s): S86.011A - Strain of right Achilles tendon, initial encounter Category: Medical Plan: [place] removed today Steri-Strips applied. The incision remain good integrity. He will continue nonweightbearing for 4 weeks. He was placed in a short-leg cast with a window cut out along the posterior aspect along the Achilles incision. This will allow for the incision to air out and remain dry. He should see us back in 3 weeks for cast removal and transition to a boot with partial weight-bearing with crutches and 3 wedges. Coding Level of Care Code Global (54954) Diagnoses Rupture of right Achilles tendon S86.011A CPT Codes Casting - CPT: 96805-Mmxuw Leg Cast Application ([id number])
--- OUTSIDE RECORDS SUMMARY | 2024-10-26 10:56 | XMS_ITS | Clinical Summary ---
Author Organization [facility] Address [address] [place] [address] Care Team Providers Care Organizational Development Manager Name Role Phone Unavailable Primary Care Provider [...] AM EDT Office Visit [facility] [address] [place] [phone] Autumn Alba PA-C [address] [place] [address] Rosalba Torres [address] [place] [address] Health Maintenance Due Date Last Done Comments Anxiety Screening 1979 Diabetes Screening 1979 Hepatitis C Screening 1979 Lipid Screening 1979 Tobacco Screening 1979 HIV Screening 1994 Hypertension Screening (#1) 1997 Imm-DTaP/Tdap/Td (1 - Tdap) 1998 Imm-Hepatitis B (1 of 3 - 19+ 3-dose series) 8 [id number] ( - season) 2024 Imm-Influenza (#1) 2024 CT Colonography 2024 Colonoscopy 2024 Colorectal Cancer Screening 2024 FIT/gFOBT 2024 Fecal DNA 2024 Flexible Sigmoidoscopy 2024 Alcohol and Drug Screen 07/12/2024 Depression Annual Screen 07/12/2024 Insurance C3 [facility] ACO
--- OUTSIDE RECORDS SUMMARY | 2024-10-26 10:56 | XMS_ITS | Clinical Summary ---
Author Organization [facility] ity Address [address] [place] [address] Care Team Providers Care Bottling Supervisor Name Role Phone Unavailable Primary Care Provider [...] Vaccine (2023-2 5 season) 2024 Influenza Vaccine (Season Ended) 2025 HIB Vaccines Aged Out No longer eligi [...] age to complete this topic Meningococcal B Vaccine Aged Out No l onger eligible based on patient's age to complete [...]
--- OUTSIDE RECORDS SUMMARY | 2024-10-26 10:56 | XMS_ITS | Clinical Summary ---
Author Organization [facility] [address] [facility] Address [address] [place] [address] Care Team Providers Care Ehs Manager Name Role Phone No, Pcp (Do Not [...] 10,TDAP once) 1999 Lipid disorder screening 2019 Covid-19 vaccine series ( - 2023- season) 2024 Colon cancer screening, Colonoscopy 2024 Diabetes screening 2024 Influenza vaccine 03/12/2025 RSV Immunization (1 - 1-dose 75+ series) 2054 Meningococcal Vaccine Aged Out No tom arun eligible based on patient's age to complete this topic Pneumococcal Vaccine (2 - 49 years) Aged Out No longer eligible based on patient's age to complete this topic Care Teams Ehs Manager Relationship Specialty Start Date End Date No, Pcp (Do Not Change Name) PCP - General 04/20/19
--- OUTSIDE RECORDS SUMMARY | 2024-10-26 10:56 | XMS_ITS | Clinical Summary ---
Author Organization [employer] Address [address] [facility] [address] [place] [address] Care Team Providers Care Perfume Maker Name Role Phone Unavailable Primary Care [...] patient's age to complete this topic Insurance [facility] C3
--- OUTSIDE RECORDS SUMMARY | 2024-10-26 10:56 | XMS_ITS | Encounter Summary ---
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 EFFECTIVE SINCE 05/14/2023 documented in this encounter Plan of Treatment Not on file documented as of this encounter Visit Diagnoses Not on filedocumented in this encounter
== END 2024-10-26 11:05 | disposition home or self-care (01) ==
LOC: HO.HOS 09:35
PROVIDERS: PCP Dentist General Practice; Visit Provider Physician Assistant
DX: S86.011A Strain of right Achilles tendon, initial encounter (principal)
CPT/HCPCS: 29405; 99024

== ENCOUNTER → 2024-10-26 09:34 | Outpatient (BNVA) | payer MEDICAID, SELFPAY | PROVIDERS: PCP Dentist General Practice; Visit Provider Physician Assistant | DX: Z47.89 Encounter for other orthopedic aftercare (principal); S86.011D Strain of right Achilles tendon, subsequent encounter | CPT/HCPCS: 29405; 99212 ==

== ENCOUNTER 2024-11-16 10:25 | Outpatient (AMB) | payer MEDICAID, SELFPAY ==
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
--- OUTSIDE RECORDS SUMMARY | 2024-11-16 11:42 | XMS_ITS | Clinical Summary ---
Author Organization [employer] Address [address] [facility] [address] [place] [address] Care Team Providers Care Graduate Student Instructor Name Role Phone Unavailable Primary Care Provider [...] patient's age to complete this topic Insurance [facility] [id number]
--- OUTSIDE RECORDS SUMMARY | 2024-11-16 11:42 | XMS_ITS | Clinical Summary ---
Author Organization [facility] [address] [facility] Address [address] [place] [address] Care Team Providers Care Accounting Recruiter Name Role Phone No, Pcp (Do Not [...] age to complete this topic Care Teams Accounting Recruiter Relationship Specialty Start Date End Date No, Pcp (Do Not Change Name) PCP - General 04/20/19
--- OUTSIDE RECORDS SUMMARY | 2024-11-16 11:42 | XMS_ITS | Clinical Summary ---
Author Organization [address] [facility] Address [address] [place] [address] Phone Care Team Providers Care Wallpaper Cleaner Name Role Phone Autumn Alba Primary Care Provider [phone] Allergies No known active allergies Medications amLODIPine (NORVASC) 2.5 mg tablet 1 tablet (2.5 mg total). Active clonazePAM (KlonoPIN) 0.5 mg tablet Take 1 tablet (0.5 mg total) by mouth 2 (two) times a day. Max Daily Amount: 1 mg Active cyanocobalamin (VITAMIN B-12) 1,000 mcg tablet Take 1 tablet (1,000 mcg total) by mouth 1 (one) time each day. Active oxyCODONE (ROXICODONE) 5 mg immediate release tablet Take 1 tablet (5 mg total) by mouth every 6 (six) hours if needed for severe pain. Max Daily Amount: 20 mg Active Encounters Date Type Department Care Team Description 11/07/2024 Telephone Gastroenterology - [place] [address] [place] [address] Amish Beard MD special procedure from Last 3 Months Social History Tobacco Use Types Packs/Day Years Used Date Smoking Tobacco: Never Assessed Sex and Gender Information Value Date Recorded Sex Assigned at Not on file Legal Sex Male 9:30 AM EST Gender Identity Not on file Sexual Orientation Not on file Plan of Treatment Upcoming Encounters Date Type Department Care Team ([facility] st Contact Info) Description 01/29/2025 12:00 PM EDT Appointment [facility] Endoscopy [address] [place] [address] Luis Felipe Maloney MD [address] [facility] [address] [place] [address] Health Maintenance Due Date Last Done Comments DTaP,Tdap,and Td Vaccines (1 - Tdap) 1998 Hepatitis B Vaccines (1 of 3 - 19+ 3-dose series) 1998 Cholesterol Screening (Lipid Panel) 06/08/2022 Colorectal Cancer Screening: Colonoscopy 06/08/2022 Depression Screening 06/08/2022 HIV Screening 06/08/2022 Hepatitis C Screening 06/08/2022 Social Influencers of Health Screening 06/08/2022 COVID-19 Vaccine ( - 2023-2 5 season) 2024 Influenza Vaccine (Season Ended) [...] patient's age to complete this topic Insurance MEDICAID - [place] Care Teams Wallpaper Cleaner Relationship Specialty Start Date End Date Autumn Alba PA [facility] [place] [address] PCP - General 11/06/24
--- OUTSIDE RECORDS SUMMARY | 2024-11-16 11:42 | XMS_ITS | Clinical Summary ---
Author Organization [facility] Address [address] [place] [address] Care Team Providers Care Salesperson Books Name Role Phone Autumn Alba PA-C Primary Care Provider Source Comments PLEASE NOTE, if this patient is a minor, it may be UNLAWFUL to discuss sensitive information that is contained in these records (such as FAMILY PLANNING, MENTAL HEALTH or SUBSTANCE ABUSE) with the minor patient's parent or other person without the patient's specific authorization.[facility] Allergies No known active allergies Medications oxyCODONE (ROXICODONE) 5 mg tablet Take 5 mg by mouth every 6 (six) hours as needed for pain TAKE 1 TABLET BY MOUTH EVERY 6 HOURS NEEDED FOR PAIN FOR 7 DAYS 5 Active cyanocobalamin, vitamin B-12, 1,[address] 1,000 mcg under the tongue 4 Active clonazePAM (KLONOPIN) 0.5 mg tablet Take 0.5 mg by mouth 2 (two) times daily as needed for anxiety 5 Active amLODIPine (NORVASC) 2.5 mg tabletIndications :Essential (primary) hypertension Take 1 Tablet by mouth once daily 90 Tablet 5 Active amLODIPine (NORVASC) 2.5 mg tablet Take 2.5 mg by mouth once daily 4 11/03/19 25 Discontinu ed(Reorder (E-Cancel Not Sent)) Active Problems Problem Noted Date Diagnosed Date Ruptured, tendon, Achilles Overview (11/02/2024): Right leg x 1 month ago s/p surgical intervention (10/17/2024) f/u with [facility] Tobacco abuse Childhood asthma ([facility]) Prediabetes Obesity (BMI 30.0-34.9) Essential (primary) hypertension Encounters Date Type Department Care Team Description 11/03/2024 Results Follow-Up [facility] [address] [place] [id number] Autumn Alba PA-C 11/02/2024 11:40 AM EDT Office Visit [facility] [address] [place] [address] Autumn Alba PA-C Annual physical exam (Primary Dx); Rupture of right Achilles tendon, subsequent encounter; Prediabetes; Obesity (BMI 30.0-34.9); Tobacco abuse; Encounter to establish care; Essential (primary) hypertension; Wears glasses; Food insecurity; Financial difficulty; Request for sterilization from Last 3 Months Family History Medical History Relation Name Comments No Known Problems Brother No Known Problems Daughter Heart attack Father No Known Problems Maternal Grandfather No Known Problems Maternal Grandmother Diabetes Mother High Cholesterol Mother Hypertension Mother Thyroid Cancer Mother No Known Problems Paternal Grandfather No Known Problems Paternal Grandmother No Known Problems Sister 1 No Known Problems Sister 2 Autism Son Relation Name Status Comments Brother Alive Daughter Alive Father Maternal Grandfather Maternal Grandmother Mother Alive Paternal Grandfather Paternal Grandmother Sister 1 Alive Sister 2 Alive Son Alive Social History Tobacco Use Types Packs/Day Years Used Date Smoking Tobacco: Some Days Cigarettes 0.3 25.3 Started: 1999 Passive Smoke Exposure: Never Smokeless Tobacco: Never Tobacco Cessation:Ready to Q uit: Not Asked; Counseling Given: Not Answered Comments:Starting smoking tobacco at 20 y/o - current everyday smoker ~ 10 cigarettes/day Alcohol Use Standard Drinks/Week Comments Yes 0 (1 standard drink = 0.6 oz pur e alcohol) social Social Connections Answer Date Recorded Connectedness 0 [...] Value Date Recorded Sex Assigned at Male 11/02/2024 8:30 AM PDT Legal Sex Male 7:12 AM PDT Gender Identity Male 11/02/2024 8:30 AM PDT Sexual Orientation Straight 11/02/2024 8: 30 AM PDT Last Filed Vital Signs Vital Sign Reading Time Taken Comments Blood Pressure 130/84 11/02/2024 11:26 AM EDT Pulse 85 11/02/2024 11:26 AM EDT Temperature 36.7 ??C (98 ??F) 11/02/2024 11:26 AM EDT Respiratory Rate 16 11/02/2024 11:26 AM EDT Oxygen Saturation 97% 11/02/2024 11:26 AM EDT Inhaled Oxygen Concentration - - Weight 99.3 kg (219 lb) 11/02/2024 11:26 AM EDT Height 170.5 cm (5' 7.13 ) 11/02/2024 11:26 AM E DT Body Mass Index 34.17 11/02/2024 11:26 AM EDT Plan of Treatment Health Maintenance Due Date Last Done Comments Urine Drug Screen 1979 Imm-Pneumococcal (1 of 2 - PCV) 1998 CT Colonography 2024 Colonoscopy 2024 Colorectal Cancer Screening 2024 FIT/gFOBT 2024 Fecal DNA 2024 Flexible Sigmoidoscopy 2024 [id number] (1 - season) 2025 Postponed from 03/12 (Patient postponement) Imm-DTaP/Tdap/Td (1 - Tdap) 02/01/2025 Postponed from 1998 (Patient postponement) Imm-Hepatitis B (1 of 3 - 19 + 3-dose series) 02/01/2025 Postponed from 05/31 (Patient postponement) Imm-Influenza (#1) 2025 Postponed from 03/12/2024 (Patient postponement) Annual Preventive Care Visit 11/02/2025 11/02/2024 Anxiety Screening 11/02/2025 11/02/2024 Diabetes Screening 11/02/2025 11/02/2024, 11/02/2024 Tobacco Cessation Counseling (#1) 11/02/2025 11/02/2024 Lipid Screening 11/03/2027 11/02/2024 Alcohol and Drug Screen Completed 11/02/2024 Depression Annual Screen Completed 11/02/2024 HIV Screening Completed 11/02/2024 Hepatitis C Screening Completed 11/02/2024 Procedures Procedure Name Priority Date/Time Associated Diagnosis Comments HEP B IMMUNITY PANEL Routine 11/02/2024 12:12 PM EDT Encounter to establish care Annual physical exam HGBA1C W/MPG Routine 11/02/2024 12:12 PM EDT Prediabetes Obesity (BMI 30.0-34.9) HEPATITIS C AB W/RFLX HCV RNA, QT, RT PCR Routine 11/02/2024 12:12 PM EDT Encounter to establish care Annual physical exam HIV 1/2 AG & AB W/RFLX (4TH GEN) Routine 11/02/2024 12:12 PM EDT Encounter to establish care Annual physical exam COMPREHENSIVE METABOLIC PANEL Routine 11/02/2024 12:12 PM EDT Prediabetes Obesity (BMI 30.0-34.9) Encounter to establish care Annual physical exam Essential (primary) hypertension TSH W/RFLX FREE T4 Routine 11/02/2024 12 :12 PM EDT Prediabetes Obesity (BMI 30.0-34.9) Encounter to establish care Annual physical exam Essential (primary) hypertension LIPID PANEL Routine 11/02/2024 12:12 PM EDT Prediabetes Obesity (BMI 30.0-34.9) Encounter to establish care Annual physical exam Essential (primary) hypertension BLOOD COUNT COMPLETE AUTO&AUTO DIFRNTL WBC Routine 11/02/2024 12:12 PM EDT Prediabetes Obesity (BMI 30.0-34.9) Encounter to establish care Annual physical exam Essential (primary) hypertension from Last 3 Months Results * HEPATITIS C AB W/RFLX HCV RNA, QT, RT PCR (11/02/2024 12:12 PM EDT) HEPATITIS C ANTIBODY NON-REACT JEFF NON-REACT JEFF [facility] Comment: HCV antibody was non-reactive. There is no laboratory evidence of HCV infection. In most cases, no further action is required. However, if recent HCV exposure is suspected, a test for HCV RNA (test code 81969) is suggested. For additional information please refer to http://[employer]faq/NUL06l6 (This link is being provided for informational/ educational purposes only.) Blood Blood / Unknown 11/02/2024 1 2:12 PM EDT 11/02/2024 12:12 PM EDT Autumn Alba PA-C LAB - BLOOD DRAW Edited Res ult - Final [employer] [address] [place] [id number], [facility] [address] [place] [phone] * HIV 1/2 AG & AB W/RFLX (4TH GEN) (11/02/2024 12:12 PM EDT) Pathologist [facility] HIV AG/AB, 4TH GEN NON-REAC TIVE NON-REAC TIVE [facility] Comment: HIV-1 antigen and HIV-1/HIV-2 antibodies were not detected. There is no laboratory evidence of HIV infection. PLEASE NOTE: This information has been disclosed to you from records whose confidentiality may be protected by state law. ??If your state requires such protection, then the state law prohibits you from making any further disclosure of the information without the specific written consent of the person to whom it pertains, or as otherwise permitted by law. A general authorization for the release of medical or other information is NOT sufficient for this purpose. ?? For additional information please refer to http://[employer]faq/MQY811 (This link is being provided for informational/ educational purposes only.) The performance of this assay has not been clinically validated in patients less than 2 years old. Blood Blood / Unknown 11/02/2024 1 2:12 PM EDT 11/02/2024 12:12 PM EDT Autumn Alba PA-C LAB - BLOOD DRAW Final Resu lt Performing Organization Address [facility] de Phone Number [facility] [address] [address], [place] [address] [address] * HEP B IMMUNITY PANEL (11/02/2024 12:12 PM EDT) HEPATITIS B SURFACE ANTIBODY QL NON-REACT JEFF NON-REACT JEFF [facility] HEPATITIS B CORE AB TOTAL NON-REACT JEFF NON-REACT JEFF [facility] COMMENT [facility] [employer] [facility] Blood Blood / Unknown 11/02/2024 1 2:12 PM EDT 11/02/2024 12:12 PM EDT Narrative [employer] - 11/03/2024 8:27 AM EDT For additional information, please refer to http://education.[employer]faq/KQX068 (This link is being provided for informational/ educational purposes only.) Autumn Alba PA-C LAB - BLOOD DRAW Final Resu lt Performing Organization Address [facility] de Phone Number [facility] [address] [address], [place] [address] [address] * HGBA1C W/MPG (11/02/2024 12:12 PM EDT) HEMOGLOBIN A1C 5.6 <5.7 % [employer] Comment: For the purpose of screening for the presence of diabetes: <5.7% ? Consistent with the absence of diabetes 5.7-6.4% ?Consistent with increased risk for diabetes ?(prediabetes) > or =6.5% ??Consistent with diabetes This assay result is consistent with a decreased risk of diabetes. Currently, no consensus exists regarding use of hemoglobin A1c for diagnosis of diabetes in children. According to [place] Diabetes Association (ADA) guidelines, hemoglobin A1c <7.0% represents optimal control in non- diabetic patients. Different metrics may apply to specific patient populations. Standards of Medical Care in Diabetes(ADA). ?? MEAN PLASMA GLUCOSE 122 mg/dL (calc) [facility] Blood Blood / Unknown 11/02/2024 1 2:12 PM EDT 11/02/2024 12:12 PM EDT Autumn Alba PA-C LAB - BLOOD DRAW Final Resu lt Performing Organization Address City/[facility]/ZIP Co de Phone Number [facility] [address] [address], [place] [address] [phone] * TSH W/RFLX FREE T4 (11/02/2024 12:12 PM EDT) Pathologist [facility] TSH W/REFLEX TO FT4 1.16 0.40 - 4.50 mIU/L [facility] Blood Blood / Unknown 11/02/2024 1 2:12 PM EDT 11/02/2024 12:12 PM EDT us Autumn Alba PA-C LAB - BLOOD DRAW Edited Res ult - Final Performing Organization Address City/[facility]/ZIP Co de Phone Number [facility] [address] [address], [place] [address] [address] * BLOOD COUNT COMPLETE AUTO&AUTO DIFRNTL WBC (11/02/2024 12:12 PM EDT) WHITE BLOOD CELL COUNT 5.3 3.8 - 10.8 Thousand/ uL [facility] [place] [employer] RED BLOOD CELL COUNT 5.66 4.20 - 5.80 Million/u L [facility] HEMOGLOBIN 15.6 13.2 - 17.1 g/dL [facility] HEMATOCRIT 48.0 38.5 - 50.0 % [facility] MCV 84.8 80.0 - 100.0 fL [facility] MCH 27.6 27.0 - 33.0 pg [facility] MCHC 32.5 32.0 - 36.0 g/dL [facility] Comment: For adults, a slight decrease in the calculated MCHC value (in the range of 30 to 32 g/dL) is most likely not clinically significant; however, it should be interpreted with caution in correlation with other red cell parameters and the patient's clinical condition. RDW 13.6 11.0 - 15.0 % [facility] PLATELET COUNT 237 140 - 400 Thousand/ uL [facility] MPV 11.1 7.5 - 12.5 fL [facility] ABSOLUTE NEUTROPHILS 3,132 1,500 - 7,800 cells/uL [facility] ABSOLUTE LYMPHOCYTES 1,473 850 - 3,900 cells/uL [facility] ABSOLUTE MONOCYTES 525 200 - 950 cells/uL [facility] ABSOLUTE EOSINOPHILS 138 15 - 500 cells/uL [facility] ABSOLUTE BASOPHILS 32 0 - 200 cells/uL [facility] NEUTROPHILS PCT 59.1 % [employer] LYMPHOCYTES 27.8 % [facility] [employer] MONOCYTES 9.9 % [facility] [employer] EOSINOPHILS 2.6 % [facility] [employer] BASOPHILS 0.6 % [employer] DIAG [employer] Blood Blood / Unknown 11/02/2024 1 2:12 PM EDT 11/02/2024 12:12 PM EDT Autumn Alba PA-C LAB - BLOOD DRAW Edited Res ult - Final [employer] [address] [address], [facility] [address] [place] [address] * (ABNORMAL) LIPID PANEL (11/02/2024 12:12 PM EDT) CHOLESTEROL, TOTAL 162 <200 mg/dL [facility] HDL CHOLESTEROL 38(L) > OR = 40 mg/dL [facility] TRIGLYCERIDES 202(H) <150 mg/dL [facility] Comment: If a non-fasting specimen was collected, consider repeat triglyceride testing on a fasting specimen if clinically indicated. Greg et al. J. of Clin. Lipidol. 2015;9:129-169. LDL-CHOLESTEROL 95 99 mg/dL (calc) [facility] Comment: Reference range: <100 Desirable range <100 mg/dL for primary prevention; ?? <70 mg/dL for patients with CHD or diabetic patients with > or = 2 CHD risk factors. LDL-C is now calculated using the Katie calculation, which is a validated novel method providing better accuracy than the Friedewald equation in the estimation of LDL-C. Brian LE et al. ABRAHAM. 2013;310(19): 2025-1591 (http://education.Medabil/faq/PNX060) CHOL/HDLC RATIO 4.3 <5.0 (calc) [facility] NON-HDL CHOLESTEROL 124 <130 mg/dL (calc) [facility] Comment: For patients with diabetes plus 1 major ASCVD risk factor, treating to a non-HDL-C goal of <100 mg/dL (LDL-C of <70 mg/dL) is considered a therapeutic option. Blood Blood / Unknown 11/02/2024 1 2:12 PM EDT 11/02/2024 12:12 PM EDT Autumn Alba PA-C LAB - BLOOD DRAW Final Resu lt [employer] [address] [place] [address], [facility] [address] [place] [phone] * COMPREHENSIVE METABOLIC PANEL (11/02/2024 12:12 PM EDT) GLUCOSE 99 65 - 99 mg/dL [facility] Comment: ?Fasting reference interval UREA NITROGEN (BUN) 16 7 - 25 mg/dL [facility] CREATININE (blood) 1.10 0.60 - 1.29 mg/dL [facility] EGFR 84 > OR = 60 mL/min/1. 73m2 [facility] BUN/CREATININE RATIO SEE NOTE: [facility] Comment: ?? Not Reported: BUN and Creatinine are within ?? reference range. ? SODIUM 139 135 - 146 mmol/L [facility] [place] [employer] POTASSIUM 3.7 3.5 - 5.3 mmol/L [facility] CHLORIDE 103 98 - 110 mmol/L [facility] CARBON DIOXIDE 28 20 - 32 mmol/L [facility] CALCIUM 9.2 8.6 - 10.3 mg/dL [facility] PROTEIN, TOTAL 7.3 6.1 - 8.1 g/dL [facility] ALBUMIN 4.4 3.6 - 5.1 g/dL [facility] GLOBULIN 2.9 1.9 - 3.7 g/dL (calc) [facility] ALBUMIN/GLOBULI N RATIO 1.5 1.0 - 2.5 (calc) [facility] BILIRUBIN, TOTAL 0.3 0.2 - 1.2 mg/dL [facility] [place] [employer] ALKALINE PHOSPHATASE 75 36 - 130 U/L [facility] [place] [employer] AST 22 10 - 40 U/L [facility] ALT 34 9 - 46 U/L [facility] Blood Blood / Unknown 11/02/2024 1 2:12 PM EDT 11/02/2024 12:12 PM EDT Autumn Alba PA-C LAB - BLOOD DRAW Edited Res ult - Final [employer] [address] [address], [employer] [facility] [address] [place] [address] from Last [address] [employer] Care Teams Salesperson Books Relationship Specialty Start Date End Date Autumn Alba PA-C [address] [place], [place] [id number] PCP - General Primary Care 11/03/24
--- OUTSIDE RECORDS SUMMARY | 2024-11-16 11:42 | XMS_ITS | Encounter Summary ---
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 EFFECTIVE SINCE 05/14/2023 documented in this encounter Plan of Treatment Not on file documented as of this encounter Visit Diagnoses Not on filedocumented in this encounter
== END 2024-11-16 11:11 | disposition home or self-care (01) ==
LOC: HO.HOS 10:25
PROVIDERS: PCP Dentist General Practice; Visit Provider Physician Assistant
DX: S86.011A Strain of right Achilles tendon, initial encounter (principal)
CPT/HCPCS: 99024

== ENCOUNTER → 2024-11-16 10:25 | Outpatient (BNVA) | payer MEDICAID, SELFPAY | PROVIDERS: PCP Dentist General Practice; Visit Provider Physician Assistant | DX: S86.011D Strain of right Achilles tendon, subsequent encounter (principal); Z91.81 History of falling; Z98.890 Other specified postprocedural states | CPT/HCPCS: 99212 ==

== ENCOUNTER 2024-12-27 11:00 | Outpatient (RCR) | payer MEDICAID, SELFPAY ==
--- NOTE | 2024-11-30 10:28 | MHC.PT.EP ---
[facility] [place] Office [place] Office [place] Office [address] João Samuel [address] [phone] F: [phone] F: [phone] F: [phone] F: [phone] Physical Therapy Plan of Care Date of Evaluation: 11/29/24 Date of Surgery: 10/17/24 Diagnosis: Strain of right achilles tendon, initial encounter Rupture of right achilles tendon. DOS 10/17/24. PWB>WBAT (inc 25% q wk). PROM, AAROM, PROM. No ankle DF past 0 deg. wean wedges q week Assessment: Pt is a pleasant 44yo M who presents to PT s/p right achilles tendon repair on 10/17/[address] Hoffman. He presented non compliant with post op precautions as he presented ambulating without boot or assistive device. I provided extensive education to pt regarding importance of following post operative precautions, pt verbalized understanding. Pt was provided with a front wheeled walker and ortho was notified. Pt has expected impairments of pain, decreased ROM, decreased strength, decreased balance/proprioception, and impaired gait. He is limited functionally by LE ADLs, prolonged standing, walking, and stair navigation. He is a good candidate for skilled PT in order to address current impairments to facilitate return to PLOF. He is recommended to be seen 2x/week for 4 weeks and will be reassessed at that time Frequency and Duration: The patient will be seen 2x/week for 4 weeks Short Term Goals: Pt will be I with HEP to promote self management of symptoms Pt will be compliant with post-op precautions Senior Living Goals: Pt will achieve full ROM and strength all planes of right ankle PER PROTOCOL to facilitate independent ambulation with proper mechanics Pt will ascend/descend 1 flight of stairs with reciprocal pattern independently per protocol Pt will demonstrate improvements in function as evidenced by statistically significant improvement in LEFI outcome measure Treatment Plan: Modalities to reduce pain, spasms and effusion. Manual therapy to restore motion and function. Therapeutic exercise to improve strength and flexibility. Neuromuscular re-education for posture and balance. Therapeutic activities to return to functional activities of daily living. Electronically signed by: Yessi Tran, PT, DPT Please sign and return to therapist. Thank you for your referral.
--- NOTE | 2025-04-24 10:33 | MHC.PT.DC ---
[facility] [place] Office [place] Office [place] Office [address] João Samuel [address] [phone] F: [phone] F: [phone] F: [phone] F: [phone] Physical Therapy Discharge Report Diagnosis: Strain of right achilles tendon, initial encounter Rupture of right achilles tendon. DOS 10/17/24. PWB>WBAT (inc 25% q wk). PROM, AAROM, PROM. No ankle DF past 0 deg. wean wedges q week Date of Surgery: 10/17/24 Date of Evaluation: 11/29/24 Date of Discharge: 04/24/25 Treatments to Date: 7 Cancellations to Date: No Shows to Date: 1 Discharge Status: Patient Elected to Stop Visit Non-compliance Discharge Summary: Pt was seen for skilled PT from 11/29/24-12/27/24. His last attended appointment was 12/27/24. He had a no show for his last scheduled appointment. He is being D/C from skilled PT as he has not attended or called to reschedule in > 30 days. Pt current level of function unknown at this time Electronically signed by: Yessi Bernabe, PT, DPT Please sign and return to therapist. Thank you for your referral.
== END 2025-04-24 10:33 | disposition home or self-care (01) ==
LOC: HO.PT 11:00
PROVIDERS: PCP Student in an Organized Health Care Education/Training Program; Visit Provider Physician Assistant
DX: S86.011D Strain of right Achilles tendon, subsequent encounter (principal)
CPT/HCPCS: 97110; 97140; 97161; 97530

== ENCOUNTER 2024-12-29 08:45 | Outpatient (AMB) | payer MEDICAID, SELFPAY ==
--- NOTE | 2024-12-29 08:50 | MHC.OFFVIS ---
Intake Visit Reasons: PO RT achilles tendon repair 10/17/24 NE Intake Note: Dallin is a 44 year old male who presents today for a post operative visit status post right Achilles tendon repair on 10/17/[address] Hoffman. At his last visit he was given a walking boot with wedges, referred to physical therapy and instructed to follow up in 6 weeks. Patient reports he is doing well, he mentions that he is able to walk without boot. States he has no pain while ambulating however walks with a limp. Rehabilitation Team Lead Services: Rehabilitation Team Lead Offered & Declined Allergies No Known Allergies Allergy (Verified 12/29/24 08:57) Medication List - Last Reconciled 12/29/24 by Riana Schneider PA-C acetaminophen 650 mg (2 x 325 mg) PO Q6H PRN 30 days cholecalciferol (vitamin D3) 125 mcg PO DAILY clonazepam 0.25 mg PO BEDTIME CPAP (CPAP Machine/Device) As directed mecobalamin (vitamin B12) 1,000 mcg sublingual DAILY HPI HPI PO RT achilles tendon repair 10/17/24 NE: Details: 44-year-old gentleman returns to the office today approximately 10 weeks status post right Achilles tendon repair on 10/17/2024. He is working with physical therapy and progressing well. He has been ambulating without the boot and feels no discomfort. He mentions there is some swelling at the end of the day. [facility] Medical History History of smoking Sleep apnea treated with continuous positive airway pressure (CPAP) Hypertension History of noncompliance with medical treatment Surgical History No history of previous surgery Family History Mother Diabetes Father No problems noted. Daughter No problems noted. Son Autism Social History Are you a primary caregiver services home to a significant other at home: No Do you presently have visiting nurse or other home services: No Alcohol intake: current Alcohol intake frequency: holidays/special occasions only Patient Tobacco Use Status: Current everyday Tobacco user Tobacco use type: Cigarette Cigarettes Per Day: 8 Current occupational status: unemployed Review of Systems Const All systems reviewed & are unremarkable except as noted in HPI and below Physical Exam Extrem Other: Right Achilles incision is healed well. No surrounding erythema or swelling. He has no tenderness along the incision. Has full range of motion without pain. He has good strength with plantar and dorsiflexion. Neurovascularly intact. Assessment & Plan Assessment & Plan (1) Rupture of right Achilles tendon: Code(s): S86.011A - Strain of right Achilles tendon, initial encounter Category: Medical Plan: He can discontinue the use of the boot and transition to comfortable street shoes. I recommend he continue to work with therapy and also remain consistent with his home exercises. I explained to the patient typically at the three-month jeanne is when we would consider the Achilles strong and he would be able to resume all activities. In the meantime he should still use caution with impact and push-off activities. 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 He is currently unemployed but is seeking job opportunities. I explained he can perform this job function however he needs to be careful with getting in and out of the truck to not jump and land awkwardly causing risk for rerupture. He does express understanding. He will increase activities as tolerated and see us back as needed. Coding Level of Care Code Global (98585) Diagnoses Rupture of right Achilles tendon S86.011A
--- OUTSIDE RECORDS SUMMARY | 2024-12-29 08:50 | XMS_ITS | Clinical Summary ---
Author Organization [facility] [address] [facility] Address [address] [place] [address] Care Team Providers Care Warning Coordination Meteorologist Name Role Phone No, Pcp (Do Not [...] 80 04/20/2019 5:34 PM EDT Temperature 36.3 C (97.3 F) 04/20/2019 5:13 PM EDT Respiratory Rate 18 04/20/2019 5:13 PM EDT [...] age to complete this topic Care Teams Warning Coordination Meteorologist Relationship Specialty Start Date End Date No, Pcp (Do Not Change Name) PCP - General 04/20/19
== END 2024-12-29 10:21 | disposition home or self-care (01) ==
LOC: HO.HOS 08:45
PROVIDERS: PCP Student in an Organized Health Care Education/Training Program; Visit Provider Physician Assistant
DX: S86.011A Strain of right Achilles tendon, initial encounter (principal)
CPT/HCPCS: 99024

== ENCOUNTER → 2024-12-29 08:45 | Outpatient (BNVA) | payer MEDICAID, SELFPAY | PROVIDERS: PCP Student in an Organized Health Care Education/Training Program; Visit Provider Physician Assistant | DX: S86.011D Strain of right Achilles tendon, subsequent encounter (principal); W50.0XXD Accidental hit or strike by another person, subsequent encounter | CPT/HCPCS: 99212 ==

== ENCOUNTER 2025-07-08 07:25 | Emergency (ER) | payer MEDICAID, SELFPAY ==
--- NOTE | ~2025-07-08 | XR_ITS ---
CLINICAL HISTORY: cough 1 view chest x-ray Comparison: CR/SR - XR CHEST 2V - 06/13/24 13:02 EST CR/SR - XR CHEST 1 VIEW - 05/26/24 10:15 EST Findings: The lungs are clear. Normal size heart. No acute fracture. IMPRESSION: 1. No acute findings. This document has been electronically signed by: Asa Chaudhary MD on 07/08/2025 08:20:33
[2025-07-08 07:41] VITALS: BP 138/83; PULSE 92; RESP 20; TEMP 37.6; O2SAT 95; BMI 35.6
[2025-07-08 08:08] LABS: Strep A Nucleic Acid Negative (Negative)
[2025-07-08 08:35] LABS: Resp Syncy Virus RNA Qual PCR NEGATIVE (Negative); SARS COV2 PCR INHOUSE POSITIVE (Negative)
--- NOTE | 2025-07-08 09:07 | ED.GENADULT ---
HPI - General Adult General Chief complaint: Upper Respiratory Symptoms Stated complaint: R/O Lavinia Little coughing Time Seen by Provider: 07/08/25 09:01 Source: patient, RN notes reviewed, old records reviewed and medical assistant secretary (Enrique ) Mode of arrival: ambulatory Limitations: no limitations History of Present Illness ED Provider: GELY Cat HPI narrative: 45-year-old male with medical history of PRAMOD using CPAP, HTN, obesity, presents to the ED due to general malaise and cough. Patient reports he woke up yesterday with symptoms including general malaise, productive cough, nasal congestion, and mild throbbing headache that has gotten progressively worse since yesterday. Patient states that he has a sensation of ?chest tightness? only when coughing, with no sensation of tightness or pain while at rest or with ambulation. Patient states he took [id number] cold/flu medication yesterday which gave him mild relief but has not taken any medication since then. Denies chest pain, shortness of breath, difficulty breathing, abdominal pain, nausea, vomiting, diarrhea, visual changes, black/tarry stool, urinary symptoms MD complaint: General malaise, productive cough, nasal congestion, headache Related Data Home Medications ?Medication ?Instructions ?Recorded ?Confirmed CPAP (CPAP Machine/Device) 05/29/24 12/29/24 clonazepam 0.5 mg tablet 0.25 mg PO BEDTIME 06/05/24 12/29/24 Previous Rx's ?Medication ?Instructions ?Recorded cholecalciferol (vitamin D3) 125 125 mcg PO DAILY #90 caps 06/13/24 mcg (5,000 unit) capsule mecobalamin (vitamin B12) 1,000 1,000 mcg sublingual DAILY #90 tabs 09/04/24 mcg disintegrating tablet,sublingual acetaminophen 325 mg tablet 650 mg (2 x 325 mg) PO Q6H PRN 10/17/24 Pain, Mild (Pain Scale 1-3) 30 days #240 tabs Allergies Allergy/AdvReac Type Severity Reaction Status Date / Time No Known Allergies Allergy Verified 07/08/25 07:44 Review of Systems Review of Systems: Yes all other systems are reviewed and are negative PMFSH Past Medical History Attestation statement: The following information was validated with the patient. Source: old records reviewed and nursing notes reviewed Medical History History of smoking Sleep apnea treated with continuous positive airway pressure (CPAP) Hypertension History of noncompliance with medical treatment Surgical History No history of previous surgery Family History Family History Mother Diabetes Father No problems noted. Daughter No problems noted. Son Autism Social History Social History Are you a primary healthcare economics consultant to a significant other at home: No Do you presently have visiting nurse or other home services: No Alcohol intake: current Alcohol intake frequency: holidays/special occasions only Patient Tobacco Use Status: Current everyday Tobacco user Tobacco use type: Cigarette Cigarettes Per Day: 8 Advance Directives: No Advance Directives Information Provided: Yes Do you have a plan to hurt others: No Plan Current occupational status: unemployed Physical Exam ED Vital Signs: Vital Signs - 24 hr 07/08/25 07:41 Temperature 99.7 F Pulse Rate 92 Respiratory Rate 20 Blood Pressure 138/83 Pulse Oximetry 95 Oxygen Delivery Method Room Air BMI result Body Mass Index 35.6 GENERAL APPEARANCE: ?AxOx4, generally well-appearing, no acute distress. HEENT: ?NC, AT. MMM. EOMI, clear conjunctiva, oropharynx clear. NECK: ?Supple without lymphadenopathy.? No stiffness or restricted ROM. HEART:? Normal rate and regular rhythm, normal S1/S2, no m/r/g LUNGS:? CTAB, moving air well, no expiratory wheeze or ronchi noted, no increased work of breathing, no accessory muscle use, no pursed lip breathing noted ABDOMEN: ?Soft, nontender, nondistended BACK: No CVAT, no obvious deformity. EXTREMITIES: ?Without cyanosis, clubbing or edema. NEUROLOGICAL: ?Grossly nonfocal. Alert and oriented, moving all 4 extremities. Observed to ambulate with normal gait. Skin: ?Warm and dry without any rash. Medical Decision Making Medical Decision Making MDM Narrative: 45-year-old male with medical history of PRAMOD using CPAP, HTN, obesity, presents to the ED due to general malaise and cough. Patient reports he woke up yesterday with symptoms including general malaise, productive cough, nasal congestion, and mild throbbing headache that has gotten progressively worse since yesterday. Patient reports sensation of chest tightness only when coughing VS on initial observation-BP 138/83, pulse rate of 92, respiratory rate of 20, afebrile with oral temp of 99.7?, O2 saturation 95% on room air. On physical exam patient is fatigued appearing, but nontoxic appearing, in no acute distress, lungs are clear to auscultation bilaterally without expiratory wheeze, or rhonchi noted, cardiac exam reveals normal rate and rhythm without murmurs/rubs/gallops, abdomen is soft, nontender, lower extremities without edema Viral serology positive for COVID CXR without acute cardiopulmonary processes, no infiltrates or consolidations noted, WNL 45-year-old male with 1 day of acute viral symptoms including general malaise, productive cough, nasal congestion, and mild headache. Patient was given 975 p.o. Tylenol for his symptoms. Patient is afebrile, without tachycardia, tachypnea, hypoxia, no increased work of breathing. Chest x-ray without acute pulmonary or cardiac processes. Viral serology positive for COVID and patient's symptoms most likely due to this. There is no indication for admission at this time. I counseled patient on supportive care measures including adequate fluids, nutrition, humidifier, and Tylenol/ibuprofen to manage pain and body aches. I counseled patient to follow up with his primary care doctor to ensure resolution of his symptoms. I counseled patient on strict return precautions. Patient is well enough to go home for self-care today. Patient is in agreement with the plan. Differential Diagnosis Differential Diagnoses: The differential diagnosis associated with the presentation includes COVID Flu RSV Viral illness Admission/Observation Consideration of admission/observation: Escalation of care including admission/observation considered I considered admission however patient without tachycardia, tachypnea, hypoxia, no increased work of breathing, afebrile, no indication for admission at this time Lab Data MDM Lab Attestation statement: I reviewed the patient's lab results. Labs: Lab Results 07/08/25 Range/Units 07:52 Influenza Type A (PCR) NEGATIVE (Negative) Influenza Type B (PCR) NEGATIVE (Negative) RSV RNA Qual (PCR) NEGATIVE (Negative) SARS-CoV-2 RNA (RT-PCR) POSITIVE A (Negative) S. pyogenes GrpA CASANDRA Negative (Negative) Independent Interpretation I performed an independent interpretation of an: Plain X-Ray Interpretation: I personally interpreted the CXR which was negative for infiltrates, consolidations, pneumothorax, pleural effusions, pulmonary edema, I agree with the radiologist's interpretation Radiology Impression Discussion of test interpretation with radiology: I have reviewed the radiologist's reading. Radiologist Impression: CXR Findings: The lungs are clear. Normal size heart. No acute fracture. IMPRESSION: 1. No acute findings. This document has been electronically signed by: Asa Chaudhary MD on 07/08/2025 08:20:33 Dictated By: Asa Chaudhary Jr, MD Signed By: <Electronically signed by Asa Chaudhary Jr, MD in OV> 07/08/25 0821 External Record Review External record reviewed: Inpatient record, Office record, Outpatient record and Prior outpatient labs Prescription Management I considered prescription management with: Antibiotic I considered antibiotics however patient positive for COVID, no indication for antibiotics at this time as his symptoms are most likely caused by viral illness COVID Chronic Conditions Patient?s care impacted by: Hypertension and Other (PRAMOD on CPAP) Discharge Plan Discharge Clinical Impression: COVID Patient Disposition: Home, Self-Care Additional Instructions: You tested positive for COVID-19 today. Your chest X-ray is normal, which is reassuring and means there are no signs of pneumonia at this time. Most people improve with rest and supportive care. For fever, body aches, headache, or sore throat, you may take acetaminophen (Tylenol) 500 mg and ibuprofen (Motrin/Advil) 400 mg every 6?8 hours as needed (take ibuprofen with food). Do not exceed 3,000 mg of Tylenol in 24 hours, and avoid ibuprofen if you have a history of stomach ulcers/bleeding, kidney disease, are on blood thinners, or have been told not to take NSAIDs. Hydrate well (water, electrolyte drinks, broth), rest, and eat small meals as tolerated. Follow up with your primary care provider to ensure resolution of your symptoms. Return to the ER immediately for trouble breathing, worsening shortness of breath, chest pain/pressure, confusion, severe weakness, inability to keep fluids down, signs of dehydration (dizziness, very dark urine, urinating very little), or any new/worsening symptoms. Prescriptions: No Action cholecalciferol (vitamin D3) 125 mcg (5,000 unit) capsule 125 mcg PO DAILY Qty: 90 0RF mecobalamin (vitamin B12) 1,000 mcg tablet,disintegrating 1,000 mcg sublingual DAILY Qty: 90 0RF Rx Instructions: place tablet under tongue and allow to dissolve for at least30 secs before swallowing acetaminophen 325 mg tablet 650 mg PO Q6H PRN (Reason: Pain, Mild (Pain Scale 1-3)) 30 Days Qty: 240 0RF (DME) CPAP Machine/Device Device See Rx Instructions .Route Rx Instructions: As directed clonazepam 0.5 mg tablet 0.25 mg PO BEDTIME Rx Instructions: administer 30 minutes before bedtime Print Language: Azeri
--- OUTSIDE RECORDS SUMMARY | 2025-07-08 09:13 | XMS_ITS | Clinical Summary ---
Author Organization [address] [facility] Address [address] [place] [address] Phone Care Team Providers Care Appliance Mechanic Name Role Phone Autumn Alba Primary Care Provider [phone] Allergies No known active allergies Medications amLODIPine [...] pain. Max Daily Amount: 20 mg Active polyethylene glycol (Golytely) 236-22.74-6.74 -5.86 gram solution Take 4L by mouth once for one dose. May substitue any PEG. Starting at 2PM the day before your procedure drink 1 8oz glasses at your own pace until you complete half of the gallon. Finish 2nd half of the gallon at 8PM. 4000 mL 5 Active bisacodyL (DULCOLAX) 5 mg EC tablet Take 2 tablets by mouth right before beginning bowel prep. See instructions provided by the office 2 tablet 5 Active polyethylene glycol (Golytely) 236-22.74-6.74 -5.86 gram solution Take 4L by mouth once for one dose. May substitue any PEG. Starting at 2PM the day before your procedure drink 1 8oz glasses at your own pace until you complete half of the gallon. Finish 2nd half of the gallon at 8PM. 4000 mL Active bisacodyL (DULCOLAX) 5 mg EC tablet Take 2 tablets by mouth right before beginning bowel prep. See instructions provided by the office 2 tablet Active Encounters Date Type Department Care Team Description 06/11/2025 Telephone Gastroenterology - [address] [phone] Luis Felipe Maloney MD 04/18/2025 Telephone Gastroenterology - [address] [phone] Luis Felipe Maloney MD from Last 3 Months Social History Tobacco Use Types Packs/Day Years Used Date Smoking Tobacco: Never Assessed Comments Unknown Sex and Gender Information Value Date Recorded Sex Assigned at Unknown 06/11/2025 5:18 PM EST Legal Sex Male 9:30 AM EST Gender Identity Male 01/18/2025 12:13 PM EDT Sexual Orientation Not on file Plan of Treatment Upcoming Encounters Date Type Department Care Team (Late st Contact Info) Description 08/20/2025 2:30 PM EST Appointment [facility] Endoscopy [address] [place] [phone] Lamine Chambers DO [address] [address] Health Maintenance Due Date Last Done Comments Breast Cancer Screening 1979 Colorectal Cancer Screening: Colonoscopy 1979 Drug Screen 1979 Non-Opioid Controlled Substa nce Agreement 1979 DTaP,Tdap,and Td Vaccines (1 - Tdap) 1998 Hepatitis B Vaccines (1 of 3 - 19+ 3-dose series) 1998 Cervical Cancer Screening: P ap Smear 2000 Cholesterol Screening (Lipid Panel) 06/08/2022 HIV Screening 06/08/2022 Hepatitis C Screening 06/08/2022 Social Influencers of Health Screening 06/08/2022 Depression Screening 07/12/2024 COVID-19 Vaccine ( - 2024-2 6 season) 2025 Influenza Vaccine (#1) 2025 RSV Immunization Adult Patie nts (1 - 1-dose 75+ series) 2054 HIB [...] 5 Years) and At-Risk Patients (6 to 49 Years) Aged Out No longer eligible b ased on patient's age to complete this topic RSV Immunization Patients Un yovanny 20 months Aged Out No longer eligible b ased on patient's age to complete this topic Varicella Vaccines Aged Out No longer eligible based on patient's age to complete this topic Goals Goal Patient Goal Type Associated Problems Recent Progress Patient-Stated? Author Autogenerat ed Goal Care Plan Autogenerated Problem No Ender Chou Additional Health Concerns Active Problems Noted Date Diagnosed Date Autogenerated Problem 04/09/2025 Insurance MEDICAID - [place] Care Teams Appliance Mechanic Relationship Specialty Start Date End Date Autumn lAba PA NPI: [id number] [place] [id number] PCP - General 11/06/24
--- OUTSIDE RECORDS SUMMARY | 2025-07-08 09:13 | XMS_ITS | Patient Health Record ---
Author Organization [facility] Address [address] [place] [phone] Care Team Providers Care Loader Operator/Ground Leader Name Role Phone Kiki Grayson DO Primary Care Provider [phone] Allergies No Known Allergies Reason For Referral No Information Medications Medication SIG (Take, Route, Frequency, Duration) Notes Start Date End Date Status Atorvastatin Calcium 10 mg 1 tab(s) oral ly once a day; Duration: 30 day(s) 11/13/2022 Active Albuterol Sulfate HFA 90 mcg/inh 2 puff(s) inhaled 4 times a day; Duration: 30 day(s) Activ e naproxen 500 mg 1 tab(s) orally 2 ti mes a day; Duration: 30 days 06/09/2021 Active Otezla 30 mg 1 tab(s) orally 2 ti mes a day Active CPAP machine 15 mm H2O heated humidifica tion inhaled during sleep; Duration: 1 year Active Triamcinolone Acetonide Topical 0.5% 1 john applied topically 2 times a day; Duration: 14 days 07/21/2021 Active Immunizations Vaccine Route Administration Date Status Comme nts COVID-19 (Moderna Monoval.) (>17y) Low Dose Booster IM Intramuscular 06/09/2021 Administered Influenza (19y+) (Fluzone) IM Intramuscular 06/09/2021 Adm inistered Problems Problem Type SNOMED Code ICD Code Onset Dates Problem Status W/U Status Risk Notes Problem Asthma (314647561) Asthma (J45.909) Active confirmed Stable on Albuterol inhaler. Problem Smoking (40004370) Smoking (F17.200) Active confirmed Advised to discontinue. Problem Obesity (602626904) Obesity (E66.9) Active confirmed Problem Hyperlipidemia (13339866) Hyperlipidemia (E78.5) Active confirmed Fasting labs. Problem Sleep apnea (15415405) Sleep apnea (G47.30) Active confirmed Continue CPAP. Problem Psoriasis (2452397) Psoriasis (L40.9) Active confirmed Trial of Triamcinolone cream bid. If not better to let me know. Verbalized understanding. Problem Prediabetes (408571066) Prediabetes (R73.03) Active confirmed Plan Of Treatment No Information Insurance Providers Payer Name Payer Address Payer Phone Subscriber Number Group Number Insured Name Patient Relationship to Insured Coverage Start Date Coverage End Date [facility] [address] [place] [phone] [id number] Dallin Guzmán Self - patient is the insured Medical (General) History Medical History History ICD Code sleep apnea asthma Surgical History Surgery Date(Month/Year)
--- OUTSIDE RECORDS SUMMARY | 2025-07-08 09:13 | XMS_ITS | Clinical Summary ---
Author Organization [facility] [address] [facility] Address [address] [place] [address] Care Team Providers Care Substation Operator Chief Name Role Phone No, Pcp (Do Not [...] 10,TDAP once) 1999 Lipid disorder screening 2019 Colon cancer screening, Colonoscopy 2024 Diabetes screening 2024 Influenza vaccine 02/09/2025 Covid-19 vaccine series (2024- season) 2025 Meningococcal B Vaccine Aged Out No l onger eligible based on patient's age to complete this topic Meningococcal Vaccine Aged Out No tom arun eligible based on patient's age to complete this topic Pneumococcal Vaccine (2 - 49 years) Aged Out No longer eligible based on patient's age to complete this topic Care Teams Substation Operator Chief Relationship Specialty Start Date End Date No, Pcp (Do Not Change Name) PCP - General 04/20/19
--- OUTSIDE RECORDS SUMMARY | 2025-07-08 09:13 | XMS_ITS ---
Author Name [facility] Organization Unknown Care Team Organization Name Specialty Phone Email Start Date End [facility]LA[facility] 11/01/2024
[2025-07-08 09:53] VITALS: BP 138/83; PULSE 92; RESP 20; TEMP 37.6; O2SAT 95
== END 2025-07-08 09:54 | disposition home or self-care (01) ==
PROVIDERS: Emergency Provider Emergency Medicine; PCP Dentist General Practice
DX: U07.1 COVID-19 (principal); R05.9 Cough, unspecified; M79.10 Myalgia, unspecified site; I10 Essential (primary) hypertension; G47.33 Obstructive sleep apnea (adult) (pediatric); Z99.89 Dependence on other enabling machines and devices; F17.200 Nicotine dependence, unspecified, uncomplicated; Z71.6 Tobacco abuse counseling
CPT/HCPCS: 71045; 87637; 87651; 99283

== ENCOUNTER → 2025-07-08 07:46 | Outpatient (BNV) | payer MEDICAID, SELFPAY | PROVIDERS: Emergency Provider Emergency Medicine; PCP Dentist General Practice; Visit Provider Radiology Diagnostic Radiology | DX: R05.9 Cough, unspecified (principal) | CPT/HCPCS: 71045 ==